=== PATIENT | female | born 1985 | race American Indian/Alaskan Native ===

== ENCOUNTER 2019-08-02 13:41 | Inpatient (IN) | payer BC, MEDICAID ==
--- NOTE | 2019-08-02 14:33 | History and Physical Report ---
History of Present Illness Date of examination: 08/02/19 Date of admission: 08/02/2019 Chief complaint: I'm here because my blood pressures where high at the office. Note from office phone call on 08/02/2019: [facility] was seen for her appointment today and her BP's were noted to be as high as 180's/90's. [facility] recommended delivery. Pt is 38.3 wks today. [facility] triage RNs and charge nurse Talisha were notified that patient will be on her way to hospital for direct admission. History of present illness: Patient with excessive weight gain during this , 94 pound weight gain. EDC Calculations LMP: 08/04/2019 EDC Confirmation: 08/14/2019 Gestational Age: 7 weeks Past History : 1 Term Births: 0 Premature Births: 0 Living Children: 0 Para: 0 Mult. Births: 0 Prev : 0 Prev. attempt? 0 Aborta: 0 Elect. Ab: 0 Spont. 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 Infection History Hx of STD: no HIV Risk Eval: no Hepatitis B Risk Eval: no Personal hx. of genital herpes: yes Partner hx. of genital herpes: no TB Risk: no Infection History Comments: Works at [employer] Genetic History Congenital Heart Defect: Jaqueline Disease: Thalassemia Mom: no Dad: no Neural Tube Defect Mom: no Dad: no Down's Syndrome Mom: no Dad: no Flaco-Sachs Mom: no Dad: no Sickle Cell Disease/Trait Mom: no Dad: no Hemophilia Mom: no Dad: no Muscular Dystrophy Mom: no Dad: no Cystic Fibrosis Mom: no Dad: no Kristopher Chorea Mom: no Dad: no Mental Retardation Mom: no Dad: no Fragile X Mom: no Dad: no Other Genetic/Chromosomal Disorder Mom: no Dad: no Child w/other defect Mom: no Dad: no Active Medications (reviewed today): PLUS 27-1 MG ORAL TABLET ( VIT-FE FUMARATE-FA) 1 po daily Current Allergies (reviewed today): No known allergies Past History Past Medical History: no pertinent history Past Surgical History: no surgical history Family/Genetic History: none Social history: no significant social history - Obstetrical History Expected Date of Delivery: 08/14/19 Actual Gestation: 38 Week(s) 3 Day(s) : 1 Para: 0 Hx # Term Pregnancies: 0 Number of Pregnancies: 0 Spontaneous Abortions: 0 Induced : 0 Number of Living Children: 0 Medications and Allergies Allergies Allergy/AdvReac Type Severity Reaction Status Date / Time No Known Allergies Allergy Unverified 08/02/19 14:53 Home Medications Medication Instructions Recorded Confirmed Last Taken Type No Known Home Medications [No 08/02/19 08/02/19 Unknown History Reported Home Medications] Review of Systems All systems: negative - Vital Signs Vital signs: Vital Signs Pulse Pulse Ox 105 H 97 08/02/19 14:27 08/02/19 14:27 Temp Pulse Resp BP Pulse Ox 100 H 145/81 97 08/02/19 14:31 08/02/19 14:31 08/02/19 14:27 - Physical Exam Breasts: Positive: deferred Cardiovascular: Regular rate, Normal S1, Normal S2 Lungs: Positive: Normal air movement Abdomen: Positive: normal appearance, soft, normal bowel sounds. Negative: distention, tenderness Genitourinary (Female): Positive: normal external genitalia, normal perenium Vulva: both: normal Vagina: Positive: normal moisture. Negative: discharge Cervix: Negative: lesion, discharge Uterus: Positive: normal size, normal contour Adnexa: both: normal Anus/Rectum: Positive: normal perianal skin, heme negative. Negative: rectal m ass, hemorrhoids Extremities: Positive: edema (+ 3 noted to hands and feet) Deep Tendon Reflex Grade: Normal +2 - Obstetrical FHR: auscultation normal, category 1 Uterine Contraction Monitor Mode: External Cervical Dilatation: 0 Cervical Effacement Percentage: 0 station: -3 Uterine Contraction Pattern: Irregular (Irregular ctxs noted.) Uterine Tone Measurement Phase: Resting Uterine Contraction Intensity: Mild Results Result Diagrams: 08/02/19 16:12 08/02/19 16:12 All other labs normal. GBS NEGATIVE HBsAg Screen Negative Negative *1 RPR Non Reactive Non Reactive *2 Rubella Antibodies, IgG 3.61 index Immune >0.99 *3 Non-immune <0.90 Equivocal 0.90 - 0.99 Immune >0.99 ABO Grouping O *4 Rh Factor Positive *5 Please note: Prior records for this patient's ABO / Rh type are not available for additional verification. Antibody Screen Negative Negative *6 WBC 7.6 x10E3/uL 3.4-10.8 *7 RBC 4.82 x10E6/uL 3.77-5.28 *8 Microcytes present. [place] cells present. Anisocytosis present. Hemoglobin [L] 11.0 g/dL 11.1-15.9 *9 Hematocrit 36.4 % 34.0-46.6 *10 MCV [L] 76 fL 79-97 *11 MCH [L] 22.8 pg 26.6-33.0 *12 MCHC [L] 30.2 g/dL 31.5-35.7 *13 RDW [H] 23.1 % 12.3-15.4 *14 Platelets 364 x10E3/uL 150-450 *15 Neutrophils 50 % Not Estab. *16 Lymphs 35 % Not Estab. *17 Monocytes 11 % Not Estab. *18 Eos 4 % Not Estab. *19 Basos 0 % Not Estab. *20 ! Immature Cells <No Reported Value> *21 Neutrophils (Absolute) 3.8 x10E3/uL 1.4-7.0 *22 Lymphs (Absolute) 2.6 x10E3/uL 0.7-3.1 *23 Monocytes(Absolute) 0.8 x10E3/uL 0.1-0.9 *24 Eos (Absolute) 0.3 x10E3/uL 0.0-0.4 *25 Baso (Absolute) 0.0 x10E3/uL 0.0-0.2 *26 ! Immature Granulocytes 0 % Not Estab. *27 ! Immature Grans (Abs) 0.0 x10E3/uL 0.0-0.1 *28 ! NRBC <No Reported Value> *29 Hematology Comments: Note: *30 Verified by microscopic examination. Tests: (2) HB Solu + Rflx Fra (320299) Hemoglobin (Hgb) Solubility Negative Negative *31 Tests: (3) Panel 542935 ([id number]) HIV Screen 4th Generation wRfx Non Reactive Non Reactive *32 Tests: (4) Gest. Diabetes 1-Hr Screen (640388) ! Gestational Diabetes Screen 103 mg/dL 65-139 *33 According to ADA, a glucose threshold of >139 mg/dL after 50-gram load identifies approximately 80% of women with gestational diabetes mellitus, while the sensitivity is further increased to approximately 90% by a threshold of >129 mg/dL. Tests: (5) HCV Ab w/Rflx to Verification (097707) ! HCV Ab <0.1 s/co ratio 0.0-0.9 *34 Tests: (6) Comment: (921404) ! Comment: SPRCS *35 Non reactive HCV antibody screen is consistent with no HCV infection, unless recent infection is suspected or other evidence exists to indicate HCV infection. Assessment and Plan A: Pt is 34 y.o. @ 38.2 wks with elevated BP's and +4 protein at [facility] office visit today. Recommended for IOL. Cervical exam 0/0/-3. P: Admit to L&D. Allow pt to eat dinner IOL to start after dinner. Cervidil to be placed. - Patient Problems (1) 38 weeks gestation of Onset Date: ~07/31/19 Current Visit: Yes Status: Acute Plan to address problem: Continue to monitor maternal and status. (2) Elevated blood pressure reading in office without diagnosis of hypertension Onset Date: ~08/02/19 Current Visit: Yes Status: Acute Plan to address problem: Will monitor BP's. If BP's or patient condition worsen, will start magnesium infusion and given antihypertensives as needed.
[2019-08-02] MEDS ORDERED: ePHEDrine SULFATE 50 MG/1 ML INJ IV PRN (14:36)
[2019-08-02] MEDS ORDERED: PROMETHAZINE 25 MG RECT SUPP PR PRN (14:36)
[2019-08-02] MEDS ORDERED: NALOXONE 0.4 MG/1 ML INJ IV PRN (14:36)
[2019-08-02] MEDS ORDERED: fentaNYL 100 MCG/2 ML INJ IV PRN (14:36)
[2019-08-02] MEDS ORDERED: MINERAL OIL 30 ML ORAL LIQD PO PRN (14:36)
[2019-08-02] MEDS ORDERED: TERBUTALINE 1 MG/1 ML INJ SUB-Q PRN (14:36)
[2019-08-02] MEDS ORDERED: LIDOCAINE (2%) 20 MG/1 ML VIAL 20 ML MDV INFILTRATI ONE (14:36)
[2019-08-02] MEDS ORDERED: TERBUTALINE 1 MG/1 ML INJ IVP PRN (14:36)
[2019-08-02] MEDS ORDERED: OXYTOCIN 20 UNIT/1000ML DRIP 20 UNITS/1,000 ML BAG IV SCH (15:00)
[2019-08-02 16:35] LABS: Hemoglobin 12.6 gm/dl (10.1-14.3); Mean Corpuscular HGB Conc 32 % (30-34); Mean Corpuscular Volume 84 fl (79-97); Platelet Count 191 K/mm3 (140-440); Red Blood Count 4.63 M/mm3 (3.65-5.03); Red Cell Distribution Width 16.7 % (13.2-15.2)
[2019-08-02 16:55] LABS: Alanine Aminotransferase 10 units/L (7-56); Uric Acid 5.7 mg/dL (3.5-7.6)
[2019-08-02] MEDS ORDERED: diphenhydrAMINE 25 MG CAP PO PRN (18:27)
[2019-08-02] MEDS ORDERED: DINOPROSTONE 10 MG VAG SUPP VG ONE (18:30)
[2019-08-03] MEDS ORDERED: MAGNESIUM SULFATE 40GM/1000ML 40 GM/1,000 ML BAG IV ONE (04:19)
[2019-08-03] MEDS ORDERED: MAGNESIUM SULFATE 4 GM/100 ML BAG IV ONE ×2 (04:20→04:28)
--- NOTE | 2019-08-03 04:22 | Event Note ---
Date: 08/03/19 (Call from RN regarding BPs 160's/90's.) Received a call from the RN regarding pt's BP's being persistently 160's/90's for the last hour. Consulted with Dr. Younger. Plan to start patient on magnesium infusion and given dose of hydralazine X 1. Will continue to monitor BP's. Pt continues to deny ANGELES. blurred vision, spots before her eye, and upper abdominal pain.
[2019-08-03] MEDS ORDERED: hydrALAZINE 20 MG/1 ML INJ IV ONE (04:29)
[2019-08-03] MEDS: LACTATED RINGERS 1,000 ML IV SCH ×2 (04:40→16:11)
[2019-08-03] MEDS: MAGNESIUM SULFATE 40GM/1000ML 40 GM/1,000 ML BAG IV SCH (05:05)
--- NOTE | 2019-08-03 07:35 | Progress Note ---
Assessment and Plan SVE cervix very posterior,fingertip,thick, OOP Pt c/o tightness in her arms and hands. She has good ROM but there is bilateral swelling. DTRs brisk LE Pitting edema to the knees. SCDs ordered MGSO4 continues @ 2gm/hr Labetalol 300mg BID as ordered per Dr Younger Did discuss with pt and SO that we will continue IOL but that there is a possibility of operative delivery Both voiced understanding Encouraged questions at any time. Dr Chairez notified Subjective - Subjective Date of service: 08/03/19 (pt c/o pain in her arms, feels tight) Principal diagnosis: [id number] PreE MGSO4 Patient reports: movement normal Objective - Vital Signs Vital Signs: Vital Signs - 12hr 08/02/19 08/02/19 08/02/19 19:36 19:41 19:46 Pulse Rate 97 H 93 H 91 H Blood Pressure 165/93 O2 Sat by Pulse 97 99 98 Oximetry 08/02/19 08/02/19 08/02/19 19:51 19:56 20:01 Pulse Rate 95 H 92 H 87 Blood Pressure O2 Sat by Pulse 98 96 96 Oximetry 08/02/19 08/02/19 08/02/19 20:16 20:21 20:26 Pulse Rate 102 H 91 H 90 Blood Pressure O2 Sat by Pulse 96 96 96 Oximetry 08/02/19 08/02/19 08/02/19 20:31 20:36 20:40 Pulse Rate 90 91 H 82 Blood Pressure 144/94 O2 Sat by Pulse 96 96 Oximetry 08/02/19 08/02/19 08/02/19 20:41 20:46 20:49 Pulse Rate 95 H 94 H 90 Blood Pressure O2 Sat by Pulse 95 97 94 Oximetry 08/02/19 08/02/19 08/02/19 20:51 20:56 21:01 Pulse Rate 92 H 95 H 95 H Blood Pressure O2 Sat by Pulse 96 97 96 Oximetry 08/02/19 08/02/19 08/02/19 21:06 21:09 21:10 Pulse Rate 98 H 95 H 88 Blood Pressure 143/90 O2 Sat by Pulse 96 94 Oximetry 08/02/19 08/02/19 08/02/19 21:11 21:16 21:17 Pulse Rate 93 H 102 H 97 H Blood Pressure O2 Sat by Pulse 96 97 94 Oximetry 05/27/20 05/27/20 05/27/20 21:21 21:22 21:26 Pulse Rate 90 87 90 Blood Pressure O2 Sat by Pulse 96 93 97 Oximetry 08/02/19 08/02/19 08/02/19 21:31 21:36 21:39 Pulse Rate 94 H 95 H 89 Blood Pressure O2 Sat by Pulse 96 96 94 Oximetry 08/02/19 08/02/19 08/02/19 21:41 21:44 21:46 Pulse Rate 92 H 91 H 92 H Blood Pressure 148/85 O2 Sat by Pulse 95 94 95 Oximetry 08/02/19 08/02/19 08/02/19 21:51 22:08 22:11 Pulse Rate 97 H 96 H 86 Blood Pressure 154/93 O2 Sat by Pulse 93 97 Oximetry 08/02/19 08/02/19 08/02/19 22:13 22:18 22:23 Pulse Rate 91 H 92 H 95 H Blood Pressure O2 Sat by Pulse 96 97 96 Oximetry 08/02/19 08/02/19 08/02/19 22:25 22:28 22:33 Pulse Rate 88 86 89 Blood Pressure O2 Sat by Pulse 94 95 94 Oximetry 08/02/19 08/02/19 08/02/19 22:38 22:39 22:40 Pulse Rate 83 82 93 H Blood Pressure 151/84 O2 Sat by Pulse 95 94 Oximetry 08/02/19 08/02/19 08/02/19 22:43 22:48 22:49 Pulse Rate 81 82 83 Blood Pressure O2 Sat by Pulse 93 95 94 Oximetry 08/02/19 08/02/19 08/02/19 22:53 22:56 22:58 Pulse Rate 94 H 92 H 91 H Blood Pressure O2 Sat by Pulse 93 94 93 Oximetry 08/02/19 08/02/19 08/02/19 23:03 23:04 23:08 Pulse Rate 89 88 89 Blood Pressure O2 Sat by Pulse 94 94 92 Oximetry 08/02/19 08/02/19 08/02/19 23:09 23:11 23:13 Pulse Rate 87 86 96 H Blood Pressure 160/94 O2 Sat by Pulse 93 98 Oximetry 08/02/19 08/02/19 08/02/19 23:21 23:25 23:26 Pulse Rate 97 H 89 87 Blood Pressure O2 Sat by Pulse 97 94 95 Oximetry 08/02/19 08/02/19 08/02/19 23:31 23:34 23:36 Pulse Rate 84 83 87 Blood Pressure O2 Sat by Pulse 96 94 95 Oximetry 08/02/19 08/02/19 08/02/19 23:39 23:40 23:41 Pulse Rate 88 86 89 Blood Pressure 125/69 O2 Sat by Pulse 94 95 Oximetry 08/02/19 08/02/19 08/02/19 23:44 23:46 23:50 Pulse Rate 83 87 84 Blood Pressure O2 Sat by Pulse 93 92 90 Oximetry 08/02/19 08/02/19 08/03/19 23:51 23:56 00:01 Pulse Rate 90 84 77 Blood Pressure O2 Sat by Pulse 96 96 95 Oximetry 08/03/19 08/03/19 08/03/19 00:02 00:06 00:08 Pulse Rate 82 81 77 Blood Pressure O2 Sat by Pulse 92 94 93 Oximetry 08/03/19 08/03/19 08/03/19 00:11 00:13 00:16 Pulse Rate 92 H 87 88 Blood Pressure 125/74 O2 Sat by Pulse 97 94 95 Oximetry 08/03/19 08/03/19 08/03/19 00:18 00:21 00:24 Pulse Rate 80 86 93 H Blood Pressure O2 Sat by Pulse 94 95 94 Oximetry 08/03/19 08/03/19 08/03/19 00:26 00:29 00:42 Pulse Rate 80 92 H 109 H Blood Pressure 131/71 O2 Sat by Pulse 94 93 97 Oximetry 08/03/19 08/03/19 08/03/19 00:47 00:52 00:57 Pulse Rate 91 H 93 H 95 H Blood Pressure O2 Sat by Pulse 96 97 98 Oximetry 08/03/19 08/03/19 08/03/19 01:02 01:07 01:10 Pulse Rate 96 H 90 88 Blood Pressure 145/89 O2 Sat by Pulse 96 96 Oximetry 08/03/19 08/03/19 08/03/19 01:23 01:28 01:30 Pulse Rate 112 H 94 H 86 Blood Pressure O2 Sat by Pulse 97 96 94 Oximetry 08/03/19 08/03/19 08/03/19 01:33 01:38 01:41 Pulse Rate 91 H 88 86 Blood Pressure 144/81 O2 Sat by Pulse 94 96 Oximetry 08/03/19 08/03/19 08/03/19 01:43 01:48 01:53 Pulse Rate 89 89 93 H Blood Pressure O2 Sat by Pulse 97 97 96 Oximetry 08/03/19 08/03/19 08/03/19 01:56 01:58 02:03 Pulse Rate 89 87 86 Blood Pressure O2 Sat by Pulse 94 96 95 Oximetry 08/03/19 08/03/19 08/03/19 02:04 02:08 02:12 Pulse Rate 88 84 81 Blood Pressure 161/97 O2 Sat by Pulse 94 95 Oximetry 08/03/19 08/03/19 08/03/19 02:13 02:18 02:21 Pulse Rate 86 91 H 89 Blood Pressure O2 Sat by Pulse 97 95 94 Oximetry 08/03/19 08/03/19 08/03/19 02:23 02:27 02:28 Pulse Rate 83 86 76 Blood Pressure O2 Sat by Pulse 95 90 93 Oximetry 08/03/19 08/03/19 08/03/19 02:42 03:12 03:21 Pulse Rate 86 83 73 Blood Pressure 167/92 159/95 162/96 O2 Sat by Pulse Oximetry 08/03/19 08/03/19 08/03/19 03:42 04:11 04:38 Pulse Rate 81 81 92 H Blood Pressure 165/96 189/92 O2 Sat by Pulse 98 Oximetry 08/03/19 08/03/19 08/03/19 04:39 04:41 04:43 Pulse Rate 92 H 88 95 H Blood Pressure 157/100 O2 Sat by Pulse 94 97 Oximetry 08/03/19 08/03/19 08/03/19 04:47 04:48 04:49 Pulse Rate 84 88 86 Blood Pressure 172/97 172/97 O2 Sat by Pulse 97 Oximetry 08/03/19 08/03/19 08/03/19 04:53 04:58 05:03 Pulse Rate 90 105 H 103 H Blood Pressure O2 Sat by Pulse 97 96 97 Oximetry 08/03/19 08/03/19 08/03/19 05:08 05:11 05:13 Pulse Rate 91 H 87 97 H Blood Pressure 169/93 O2 Sat by Pulse 97 97 Oximetry 05/28/20 05/28/20 05/28/20 05:18 05:24 05:29 Pulse Rate 98 H 95 H 96 H Blood Pressure O2 Sat by Pulse 98 97 95 Oximetry 08/03/19 08/03/19 08/03/19 05:34 05:35 05:39 Pulse Rate 95 H 94 H 108 H Blood Pressure O2 Sat by Pulse 95 94 94 Oximetry 08/03/19 08/03/19 08/03/19 05:41 05:42 05:44 Pulse Rate 97 H 93 H 94 H Blood Pressure 161/94 O2 Sat by Pulse 94 96 Oximetry 08/03/19 08/03/19 08/03/19 05:46 05:49 05:54 Pulse Rate 95 H 94 H 101 H Blood Pressure O2 Sat by Pulse 94 95 95 Oximetry 08/03/19 08/03/19 08/03/19 05:59 06:04 06:09 Pulse Rate 101 H 103 H 98 H Blood Pressure O2 Sat by Pulse 96 95 95 Oximetry 08/03/19 08/03/19 08/03/19 06:11 06:14 06:19 Pulse Rate 94 H 93 H 93 H Blood Pressure 170/94 O2 Sat by Pulse 95 96 Oximetry 08/03/19 08/03/19 08/03/19 06:20 06:24 06:29 Pulse Rate 94 H 117 H 111 H Blood Pressure O2 Sat by Pulse 94 97 97 Oximetry 08/03/19 08/03/19 08/03/19 06:34 06:38 06:39 Pulse Rate 104 H 96 H 100 H Blood Pressure 175/88 O2 Sat by Pulse 96 97 Oximetry 08/03/19 08/03/19 08/03/19 06:44 06:49 06:52 Pulse Rate 104 H 107 H 95 H Blood Pressure 148/78 O2 Sat by Pulse 97 97 Oximetry 08/03/19 08/03/19 08/03/19 06:54 06:59 07:04 Pulse Rate 100 H 100 H 96 H Blood Pressure O2 Sat by Pulse 96 97 95 Oximetry 08/03/19 08/03/19 08/03/19 07:07 07:09 07:12 Pulse Rate 94 H 99 H 99 H Blood Pressure 144/89 O2 Sat by Pulse 96 94 Oximetry 08/03/19 08/03/19 08/03/19 07:14 07:19 07:22 Pulse Rate 96 H 95 H 93 H Blood Pressure 146/88 O2 Sat by Pulse 94 95 94 Oximetry 08/03/19 08/03/19 07:24 07:29 Pulse Rate 94 H 103 H Blood Pressure O2 Sat by Pulse 95 98 Oximetry - Exam Breasts: deferred Cardiovascular: Regular rate Lungs: Clear to auscultation Abdomen: Present: normal appearance, soft. Absent: distention, tenderness Uterus: Present: normal FHR: auscultation normal, category 1 Uterine Contraction Monitor Mode: External Cervical Dilatation: 0.5 Cervical Effacement Percentage: 30 station: -3 Uterine Contraction Frequency (min): 3-5 Uterine Contraction Duration: 45 Uterine Contraction Pattern: Irregular Uterine Tone Measurement Phase: Resting Uterine Contraction Intensity: Mild Extremities: edema Deep Tendon Reflex Grade: Normal but brisk +3 - Labs Labs: Abnormal Labs 08/02/19 08/02/19 16:12 16:12 MCH 27 L RDW 16.7 H Lactate Dehydrogenase 285 H Laboratory Results - last 24 hr 08/02/19 08/02/19 08/02/19 15:56 16:12 16:12 WBC 10.5 RBC 4.63 Hgb 12.6 Hct 39.0 MCV 84 MCH 27 L MCHC 32 RDW 16.7 H Plt Count 191 Creatinine 0.7 Estimated GFR > 60 Uric Acid 5.7 AST 22 ALT 10 Lactate Dehydrogenase 285 H Syphilis IgG Antibody Blood Type O POSITIVE Antibody Screen Negative 08/02/19 16:12 WBC RBC Hgb Hct MCV MCH MCHC RDW Plt Count Creatinine Estimated GFR Uric Acid AST ALT Lactate Dehydrogenase Syphilis IgG Antibody Non-reactive Blood Type Antibody Screen
[2019-08-03] MEDS: OXYTOCIN DRIP 30 UNITS/500 ML BAG IV SCH ×4 (09:42→17:35)
[2019-08-03] MEDS: ACETAMINOPHEN W/CODEINE 300-30 MG TAB PO PRN ×2 (11:43→21:14)
--- NOTE | 2019-08-03 13:30 | Progress Note ---
Assessment and Plan Pt asking for epidural SVE 1,50,-4 Will give IV pain meds. Dr Chairez notified of pt status. Subjective - Subjective Date of service: 08/03/19 (low baseline 100; pt asking for epidural) Principal diagnosis: [id number] PreE MGSO4 Patient reports: movement normal, contractions Objective - Vital Signs Vital Signs: Vital Signs - 12hr 08/03/19 08/03/19 08/03/19 01:28 01:30 01:33 Temperature Pulse Rate 94 H 86 91 H Respiratory Rate Blood Pressure Blood Pressure [Right] O2 Sat by Pulse 96 94 94 Oximetry 08/03/19 08/03/19 08/03/19 01:38 01:41 01:43 Temperature Pulse Rate 88 86 89 Respiratory Rate Blood Pressure 144/81 Blood Pressure [Right] O2 Sat by Pulse 96 97 Oximetry 08/03/19 08/03/19 08/03/19 01:48 01:53 01:56 Temperature Pulse Rate 89 93 H 89 Respiratory Rate Blood Pressure Blood Pressure [Right] O2 Sat by Pulse 97 96 94 Oximetry 08/03/19 08/03/19 08/03/19 01:58 02:03 02:04 Temperature Pulse Rate 87 86 88 Respiratory Rate Blood Pressure Blood Pressure [Right] O2 Sat by Pulse 96 95 94 Oximetry 08/03/19 08/03/19 08/03/19 02:08 02:12 02:13 Temperature Pulse Rate 84 81 86 Respiratory Rate Blood Pressure 161/97 Blood Pressure [Right] O2 Sat by Pulse 95 97 Oximetry 08/03/19 08/03/19 08/03/19 02:18 02:21 02:23 Temperature Pulse Rate 91 H 89 83 Respiratory Rate Blood Pressure Blood Pressure [Right] O2 Sat by Pulse 95 94 95 Oximetry 08/03/19 08/03/19 08/03/19 02:27 02:28 02:42 Temperature Pulse Rate 86 76 86 Respiratory Rate Blood Pressure 167/92 Blood Pressure [Right] O2 Sat by Pulse 90 93 Oximetry 08/03/19 08/03/19 08/03/19 03:12 03:21 03:42 Temperature Pulse Rate 83 73 81 Respiratory Rate Blood Pressure 159/95 162/96 165/96 Blood Pressure [Right] O2 Sat by Pulse Oximetry 05/28/20 05/28/20 05/28/20 04:11 04:38 04:39 Temperature Pulse Rate 81 92 H 92 H Respiratory Rate Blood Pressure 189/92 Blood Pressure [Right] O2 Sat by Pulse 98 94 Oximetry 08/03/19 08/03/19 08/03/19 04:41 04:43 04:47 Temperature Pulse Rate 88 95 H 84 Respiratory Rate Blood Pressure 157/100 172/97 Blood Pressure [Right] O2 Sat by Pulse 97 Oximetry 08/03/19 08/03/19 08/03/19 04:48 04:49 04:53 Temperature Pulse Rate 88 86 90 Respiratory Rate Blood Pressure 172/97 Blood Pressure [Right] O2 Sat by Pulse 97 97 Oximetry 08/03/19 08/03/19 08/03/19 04:58 05:03 05:08 Temperature Pulse Rate 105 H 103 H 91 H Respiratory Rate Blood Pressure Blood Pressure [Right] O2 Sat by Pulse 96 97 97 Oximetry 08/03/19 08/03/19 08/03/19 05:11 05:13 05:18 Temperature Pulse Rate 87 97 H 98 H Respiratory Rate Blood Pressure 169/93 Blood Pressure [Right] O2 Sat by Pulse 97 98 Oximetry 08/03/19 08/03/19 08/03/19 05:24 05:29 05:34 Temperature Pulse Rate 95 H 96 H 95 H Respiratory Rate Blood Pressure Blood Pressure [Right] O2 Sat by Pulse 97 95 95 Oximetry 08/03/19 08/03/19 08/03/19 05:35 05:39 05:41 Temperature Pulse Rate 94 H 108 H 97 H Respiratory Rate Blood Pressure Blood Pressure [Right] O2 Sat by Pulse 94 94 94 Oximetry 08/03/19 08/03/19 08/03/19 05:42 05:44 05:46 Temperature Pulse Rate 93 H 94 H 95 H Respiratory Rate Blood Pressure 161/94 Blood Pressure [Right] O2 Sat by Pulse 96 94 Oximetry 08/03/19 08/03/19 08/03/19 05:49 05:54 05:59 Temperature Pulse Rate 94 H 101 H 101 H Respiratory Rate Blood Pressure Blood Pressure [Right] O2 Sat by Pulse 95 95 96 Oximetry 08/03/19 08/03/19 08/03/19 06:04 06:09 06:11 Temperature Pulse Rate 103 H 98 H 94 H Respiratory Rate Blood Pressure 170/94 Blood Pressure [Right] O2 Sat by Pulse 95 95 Oximetry 08/03/19 08/03/19 08/03/19 06:14 06:19 06:20 Temperature Pulse Rate 93 H 93 H 94 H Respiratory Rate Blood Pressure Blood Pressure [Right] O2 Sat by Pulse 95 96 94 Oximetry 08/03/19 08/03/19 08/03/19 06:24 06:29 06:34 Temperature Pulse Rate 117 H 111 H 104 H Respiratory Rate Blood Pressure Blood Pressure [Right] O2 Sat by Pulse 97 97 96 Oximetry 08/03/19 08/03/19 08/03/19 06:38 06:39 06:44 Temperature Pulse Rate 96 H 100 H 104 H Respiratory Rate Blood Pressure 175/88 Blood Pressure [Right] O2 Sat by Pulse 97 97 Oximetry 08/03/19 08/03/19 08/03/19 06:49 06:52 06:54 Temperature Pulse Rate 107 H 95 H 100 H Respiratory Rate Blood Pressure 148/78 Blood Pressure [Right] O2 Sat by Pulse 97 96 Oximetry 08/03/19 08/03/19 08/03/19 06:59 07:04 07:07 Temperature Pulse Rate 100 H 96 H 94 H Respiratory Rate Blood Pressure 144/89 Blood Pressure [Right] O2 Sat by Pulse 97 95 Oximetry 08/03/19 08/03/19 08/03/19 07:09 07:12 07:14 Temperature Pulse Rate 99 H 99 H 96 H Respiratory Rate Blood Pressure Blood Pressure [Right] O2 Sat by Pulse 96 94 94 Oximetry 08/03/19 08/03/19 08/03/19 07:19 07:22 07:24 Temperature Pulse Rate 95 H 93 H 94 H Respiratory Rate Blood Pressure 146/88 Blood Pressure [Right] O2 Sat by Pulse 95 94 95 Oximetry 08/03/19 08/03/19 08/03/19 07:29 07:34 07:38 Temperature Pulse Rate 103 H 97 H 88 Respiratory Rate Blood Pressure 144/84 Blood Pressure [Right] O2 Sat by Pulse 98 96 Oximetry 08/03/19 08/03/19 08/03/19 07:39 07:44 07:49 Temperature Pulse Rate 95 H 101 H 97 H Respiratory Rate Blood Pressure Blood Pressure [Right] O2 Sat by Pulse 95 97 95 Oximetry 08/03/19 08/03/19 08/03/19 07:50 07:52 07:54 Temperature Pulse Rate 94 H 95 H 97 H Respiratory Rate Blood Pressure 135/79 Blood Pressure [Right] O2 Sat by Pulse 94 96 Oximetry 08/03/19 08/03/19 08/03/19 08:37 08:53 09:07 Temperature Pulse Rate 93 H 88 90 Respiratory Rate Blood Pressure 119/72 120/73 117/67 Blood Pressure [Right] O2 Sat by Pulse Oximetry 08/03/19 08/03/19 08/03/19 09:22 09:37 09:50 Temperature 97.6 F Pulse Rate 85 90 90 Respiratory 16 Rate Blood Pressure 121/61 123/71 Blood Pressure 131/74 [Right] O2 Sat by Pulse Oximetry 08/03/19 08/03/19 08/03/19 09:51 10:17 10:22 Temperature Pulse Rate 88 89 93 H Respiratory Rate Blood Pressure 131/74 132/83 Blood Pressure [Right] O2 Sat by Pulse 95 96 Oximetry 08/03/19 08/03/19 08/03/19 10:27 10:32 10:37 Temperature Pulse Rate 89 86 86 Respiratory Rate Blood Pressure 133/79 Blood Pressure [Right] O2 Sat by Pulse 94 93 92 Oximetry 08/03/19 08/03/19 08/03/19 10:38 10:42 10:47 Temperature Pulse Rate 87 85 91 H Respiratory Rate Blood Pressure Blood Pressure [Right] O2 Sat by Pulse 93 94 96 Oximetry 08/03/19 08/03/19 08/03/19 10:52 10:56 10:57 Temperature Pulse Rate 91 H 82 91 H Respiratory Rate Blood Pressure 135/76 Blood Pressure [Right] O2 Sat by Pulse 97 93 96 Oximetry 08/03/19 08/03/19 08/03/19 11:02 11:07 11:08 Temperature Pulse Rate 83 87 84 Respiratory Rate Blood Pressure 132/83 Blood Pressure [Right] O2 Sat by Pulse 95 96 Oximetry 08/03/19 08/03/19 08/03/19 11:11 11:12 11:17 Temperature Pulse Rate 88 87 83 Respiratory Rate Blood Pressure Blood Pressure [Right] O2 Sat by Pulse 93 95 94 Oximetry 08/03/19 08/03/19 08/03/19 11:22 11:25 11:27 Temperature Pulse Rate 88 87 87 Respiratory Rate Blood Pressure 132/77 Blood Pressure [Right] O2 Sat by Pulse 96 94 96 Oximetry 08/03/19 08/03/19 08/03/19 11:32 11:34 11:37 Temperature Pulse Rate 88 81 80 Respiratory Rate Blood Pressure 136/76 Blood Pressure [Right] O2 Sat by Pulse 96 93 95 Oximetry 08/03/19 08/03/19 08/03/19 11:42 11:43 11:47 Temperature Pulse Rate 86 86 91 H Respiratory Rate Blood Pressure Blood Pressure [Right] O2 Sat by Pulse 95 94 96 Oximetry 08/03/19 08/03/19 08/03/19 11:48 11:52 11:57 Temperature Pulse Rate 93 H 86 83 Respiratory Rate Blood Pressure 142/86 Blood Pressure [Right] O2 Sat by Pulse 93 95 94 Oximetry 08/03/19 08/03/19 08/03/19 12:02 12:03 12:07 Temperature Pulse Rate 85 85 88 Respiratory Rate Blood Pressure 148/87 Blood Pressure [Right] O2 Sat by Pulse 96 94 97 Oximetry 08/03/19 08/03/19 08/03/19 12:09 12:12 12:17 Temperature Pulse Rate 84 88 83 Respiratory Rate Blood Pressure Blood Pressure [Right] O2 Sat by Pulse 94 97 95 Oximetry 08/03/19 08/03/19 08/03/19 12:21 12:22 12:27 Temperature Pulse Rate 83 83 81 Respiratory Rate Blood Pressure 147/82 Blood Pressure [Right] O2 Sat by Pulse 93 96 95 Oximetry 08/03/19 08/03/19 08/03/19 12:28 12:32 12:34 Temperature Pulse Rate 79 75 79 Respiratory Rate Blood Pressure Blood Pressure [Right] O2 Sat by Pulse 94 94 92 Oximetry 08/03/19 08/03/19 08/03/19 12:37 12:38 12:40 Temperature Pulse Rate 82 76 83 Respiratory Rate Blood Pressure 144/81 Blood Pressure [Right] O2 Sat by Pulse 94 94 Oximetry 08/03/19 08/03/19 08/03/19 12:42 12:47 12:52 Temperature Pulse Rate 83 94 H 81 Respiratory Rate Blood Pressure 135/82 Blood Pressure [Right] O2 Sat by Pulse 94 97 96 Oximetry 08/03/19 08/03/19 08/03/19 12:54 12:57 13:00 Temperature Pulse Rate 80 77 80 Respiratory Rate Blood Pressure Blood Pressure [Right] O2 Sat by Pulse 94 94 93 Oximetry 08/03/19 08/03/19 08/03/19 13:02 13:05 13:07 Temperature Pulse Rate 77 81 85 Respiratory Rate Blood Pressure 142/82 Blood Pressure [Right] O2 Sat by Pulse 94 94 94 Oximetry 08/03/19 08/03/19 08/03/19 13:11 13:12 13:17 Temperature Pulse Rate 81 82 89 Respiratory Rate Blood Pressure Blood Pressure [Right] O2 Sat by Pulse 94 96 96 Oximetry 08/03/19 08/03/19 13:18 13:22 Temperature Pulse Rate 56 L 92 H Respiratory Rate Blood Pressure 137/72 Blood Pressure [Right] O2 Sat by Pulse 90 97 Oximetry - Exam Breasts: deferred Cardiovascular: Regular rate Lungs: Normal air movement Abdomen: Present: normal appearance, soft. Absent: distention, tenderness Uterus: Present: normal FHR: auscultation normal Uterine Contraction Monitor Mode: External Cervical Dilatation: 1 (difficult to palpate head) Cervical Effacement Percentage: 50 station: -4 Uterine Contraction Pattern: Regular Uterine Tone Measurement Phase: Resting Uterine Contraction Intensity: Moderate Extremities: edema (appears to be worsening; +2 pitting edema.) Deep Tendon Reflex Grade: Normal but brisk +3 - Labs Labs: Abnormal Labs 08/02/19 08/02/19 08/03/19 16:12 16:12 06:48 MCH 27 L RDW 16.7 H Magnesium 3.70 H Lactate Dehydrogenase 285 H 08/03/19 12:11 MCH RDW Magnesium 4.80 H Lactate Dehydrogenase Laboratory Results - last 24 hr 08/02/19 08/02/19 08/02/19 15:56 16:12 16:12 WBC 10.5 RBC 4.63 Hgb 12.6 Hct 39.0 MCV 84 MCH 27 L MCHC 32 RDW 16.7 H Plt Count 191 Creatinine 0.7 Estimated GFR > 60 Uric Acid 5.7 Magnesium AST 22 ALT 10 Lactate Dehydrogenase 285 H Syphilis IgG Antibody Blood Type O POSITIVE Antibody Screen Negative 08/02/19 08/03/19 08/03/19 16:12 06:48 12:11 WBC RBC Hgb Hct MCV MCH MCHC RDW Plt Count Creatinine Estimated GFR Uric Acid Magnesium 3.70 H 4.80 H AST ALT Lactate Dehydrogenase Syphilis IgG Antibody Non-reactive Blood Type Antibody Screen
[2019-08-03 19:23] LABS: Hemoglobin 12.4 gm/dl (10.1-14.3); Mean Corpuscular HGB Conc 33 % (30-34); Mean Corpuscular Volume 85 fl (79-97); Platelet Count 174 K/mm3 (140-440); Red Blood Count 4.46 M/mm3 (3.65-5.03); Red Cell Distribution Width 17.1 % (13.2-15.2)
--- NOTE | 2019-08-03 19:26 | Event Note ---
Date: 08/03/19 (stop pitocin; Diet PM care; Cervidil) BPs 140/90 Dr Chairez here consult @ POC Will stop pitocin PM care then place Cervidil @ 2029 Pt agrees with POC All concerns addressed
[2019-08-03] MEDS ORDERED: DINOPROSTONE 10 MG VAG SUPP VG ONE (23:15)
[2019-08-04] MEDS: LACTATED RINGERS 1,000 ML IV SCH ×2 (04:52→22:01)
[2019-08-04] MEDS: ACETAMINOPHEN W/CODEINE 300-30 MG TAB PO PRN (07:07)
--- NOTE | 2019-08-04 08:18 | Progress Note ---
Assessment and Plan A: 34 y.o. @ term IOL d/t elevated BP's @ high risk appointment. On magnesium infusion with unchanged cervical exam. Cervidil placed @ 1030 pm. P: Cervidil to be removed @ 1030 am. Start Pitocin after Cervidil removed. - Patient Problems (1) 38 weeks gestation of Onset Date: ~07/31/19 Current Visit: Yes Status: Acute (2) Elevated blood pressure reading in office without diagnosis of hypertension Onset Date: ~08/02/19 Current Visit: Yes Status: Acute Subjective - Subjective Date of service: 08/04/19 (Pt states that she feels more swollen than yesterday.) Principal diagnosis: [id number] PreE MGSO4 Interval history: Patient with excessive weight gain during this , 94 pound weight gain. EDC Calculations LMP: 08/04/2019 EDC Confirmation: 08/14/2019 Gestational Age: 7 weeks Past History : 1 Term Births: 0 Premature Births: 0 Living Children: 0 Para: 0 Mult. Births: 0 Prev : 0 Prev. attempt? 0 Aborta: 0 Elect. Ab: 0 Spont. 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 Infection History Hx of STD: no HIV Risk Eval: no Hepatitis B Risk Eval: no Personal hx. of genital herpes: yes Partner hx. of genital herpes: no TB Risk: no Infection History Comments: Works at [employer] Genetic History Congenital Heart Defect: Jaqueline Disease: Thalassemia Mom: no Dad: no Neural Tube Defect Mom: no Dad: no Down's Syndrome Mom: no Dad: no Flaco-Sachs Mom: no Dad: no Sickle Cell Disease/Trait Mom: no Dad: no Hemophilia Mom: no Dad: no Muscular Dystrophy Mom: no Dad: no Cystic Fibrosis Mom: no Dad: no Kristopher Chorea Mom: no Dad: no Mental Retardation Mom: no Dad: no Fragile X Mom: no Dad: no Other Genetic/Chromosomal Disorder Mom: no Dad: no Child w/other defect Mom: no Dad: no Active Medications (reviewed today): PLUS 27-1 MG ORAL TABLET ( VIT-FE FUMARATE-FA) 1 po daily Current Allergies (reviewed today): No known allergies Patient reports: movement normal, contractions Objective - Vital Signs Vital Signs: Vital Signs - 12hr 08/03/19 08/03/19 08/03/19 20:19 20:22 20:37 Temperature Pulse Rate 105 H 97 H 103 H Respiratory Rate Blood Pressure 142/85 135/71 Blood Pressure [Right] O2 Sat by Pulse 95 Oximetry 08/03/19 08/03/19 08/03/19 20:44 20:49 20:52 Temperature 98.0 F Pulse Rate 104 H 97 H 103 H Respiratory 24 Rate Blood Pressure 143/75 Blood Pressure 143/75 [Right] O2 Sat by Pulse 97 96 Oximetry 08/03/19 08/03/19 08/03/19 20:54 20:59 21:04 Temperature Pulse Rate 99 H 99 H 98 H Respiratory Rate Blood Pressure Blood Pressure [Right] O2 Sat by Pulse 96 97 96 Oximetry 08/03/19 08/03/19 08/03/19 21:07 21:09 21:13 Temperature Pulse Rate 96 H 102 H 96 H Respiratory Rate Blood Pressure 148/84 148/84 Blood Pressure [Right] O2 Sat by Pulse 95 Oximetry 08/03/19 08/03/19 08/03/19 21:14 21:19 21:22 Temperature Pulse Rate 95 H 94 H 89 Respiratory Rate Blood Pressure 155/88 Blood Pressure [Right] O2 Sat by Pulse 97 98 Oximetry 08/03/19 08/03/19 08/03/19 21:24 21:29 21:34 Temperature Pulse Rate 90 85 85 Respiratory Rate Blood Pressure Blood Pressure [Right] O2 Sat by Pulse 98 98 96 Oximetry 08/03/19 08/03/19 08/03/19 21:35 21:37 21:39 Temperature Pulse Rate 86 85 85 Respiratory Rate Blood Pressure 150/85 Blood Pressure [Right] O2 Sat by Pulse 94 96 Oximetry 08/03/19 08/03/19 08/03/19 21:40 21:44 21:46 Temperature Pulse Rate 85 88 86 Respiratory Rate Blood Pressure Blood Pressure [Right] O2 Sat by Pulse 94 95 94 Oximetry 08/03/19 08/03/19 08/03/19 21:49 21:51 21:52 Temperature Pulse Rate 90 88 90 Respiratory Rate Blood Pressure 141/79 Blood Pressure [Right] O2 Sat by Pulse 94 94 Oximetry 08/03/19 08/03/19 08/03/19 21:54 21:59 22:04 Temperature Pulse Rate 88 84 85 Respiratory Rate Blood Pressure Blood Pressure [Right] O2 Sat by Pulse 94 93 93 Oximetry 08/03/19 08/03/19 08/03/19 22:07 22:09 22:11 Temperature Pulse Rate 86 87 84 Respiratory Rate Blood Pressure 141/77 Blood Pressure [Right] O2 Sat by Pulse 95 93 Oximetry 08/03/19 08/03/19 08/03/19 22:14 22:17 22:19 Temperature Pulse Rate 83 83 83 Respiratory Rate Blood Pressure Blood Pressure [Right] O2 Sat by Pulse 94 94 95 Oximetry 08/03/19 08/03/19 08/03/19 22:22 22:24 22:26 Temperature Pulse Rate 83 84 86 Respiratory Rate Blood Pressure 142/78 Blood Pressure [Right] O2 Sat by Pulse 97 94 Oximetry 08/03/19 08/03/19 08/03/19 22:42 22:47 22:52 Temperature Pulse Rate 90 88 87 Respiratory Rate Blood Pressure 116/61 Blood Pressure [Right] O2 Sat by Pulse 93 94 92 Oximetry 08/03/19 08/03/19 08/03/19 22:57 23:02 23:05 Temperature Pulse Rate 82 83 86 Respiratory Rate Blood Pressure Blood Pressure [Right] O2 Sat by Pulse 94 92 92 Oximetry 08/03/19 08/03/19 08/03/19 23:07 23:10 23:12 Temperature Pulse Rate 84 85 84 Respiratory Rate Blood Pressure Blood Pressure [Right] O2 Sat by Pulse 93 90 94 Oximetry 08/03/19 08/03/19 08/03/19 23:17 23:19 23:22 Temperature Pulse Rate 84 80 84 Respiratory Rate Blood Pressure 107/52 Blood Pressure [Right] O2 Sat by Pulse 97 92 95 Oximetry 08/03/19 08/03/19 08/03/19 23:24 23:27 23:30 Temperature Pulse Rate 84 85 83 Respiratory Rate Blood Pressure Blood Pressure [Right] O2 Sat by Pulse 90 91 90 Oximetry 0508/03/19 08/03/19 23:32 23:37 23:42 Temperature Pulse Rate 88 87 88 Respiratory Rate Blood Pressure Blood Pressure [Right] O2 Sat by Pulse 93 96 95 Oximetry 08/03/19 08/03/19 08/03/19 23:47 23:49 23:52 Temperature Pulse Rate 89 87 88 Respiratory Rate Blood Pressure Blood Pressure [Right] O2 Sat by Pulse 96 94 97 Oximetry 08/03/19 08/03/19 08/03/19 23:53 23:56 23:57 Temperature Pulse Rate 87 86 87 Respiratory Rate Blood Pressure 114/55 Blood Pressure [Right] O2 Sat by Pulse 94 94 Oximetry 08/04/19 08/04/19 08/04/19 00:02 00:05 00:07 Temperature Pulse Rate 96 H 85 82 Respiratory Rate Blood Pressure Blood Pressure [Right] O2 Sat by Pulse 96 94 93 Oximetry 08/04/19 08/04/19 08/04/19 00:10 00:12 00:17 Temperature Pulse Rate 85 85 84 Respiratory Rate Blood Pressure Blood Pressure [Right] O2 Sat by Pulse 94 96 96 Oximetry 08/04/19 08/04/19 08/04/19 00:22 00:27 00:32 Temperature Pulse Rate 83 88 97 H Respiratory Rate Blood Pressure 110/53 Blood Pressure [Right] O2 Sat by Pulse 96 96 98 Oximetry 08/04/19 08/04/19 08/04/19 00:37 00:38 00:42 Temperature Pulse Rate 84 82 81 Respiratory Rate Blood Pressure Blood Pressure [Right] O2 Sat by Pulse 95 94 96 Oximetry 08/04/19 08/04/19 08/04/19 00:43 00:47 00:49 Temperature Pulse Rate 83 83 84 Respiratory Rate Blood Pressure Blood Pressure [Right] O2 Sat by Pulse 92 94 91 Oximetry 08/04/19 08/04/19 08/04/19 00:52 00:53 00:54 Temperature Pulse Rate 82 81 81 Respiratory Rate Blood Pressure 119/75 Blood Pressure [Right] O2 Sat by Pulse 96 94 Oximetry 08/04/19 08/04/19 08/04/19 00:57 01:01 01:02 Temperature Pulse Rate 85 83 82 Respiratory Rate Blood Pressure Blood Pressure [Right] O2 Sat by Pulse 94 94 94 Oximetry 08/04/19 08/04/19 08/04/19 01:07 01:09 01:12 Temperature Pulse Rate 87 86 86 Respiratory Rate Blood Pressure Blood Pressure [Right] O2 Sat by Pulse 94 94 94 Oximetry 08/04/19 08/04/19 08/04/19 01:15 01:17 01:20 Temperature Pulse Rate 82 82 79 Respiratory Rate Blood Pressure Blood Pressure [Right] O2 Sat by Pulse 94 95 92 Oximetry 08/04/19 08/04/19 08/04/19 01:22 01:25 01:27 Temperature Pulse Rate 83 80 88 Respiratory Rate Blood Pressure 121/68 Blood Pressure [Right] O2 Sat by Pulse 91 90 91 Oximetry 08/04/19 08/04/19 08/04/19 01:31 01:32 01:37 Temperature Pulse Rate 83 82 85 Respiratory Rate Blood Pressure Blood Pressure [Right] O2 Sat by Pulse 94 95 94 Oximetry 08/04/19 08/04/19 08/04/19 01:42 01:43 01:47 Temperature Pulse Rate 93 H 90 82 Respiratory Rate Blood Pressure Blood Pressure [Right] O2 Sat by Pulse 95 93 96 Oximetry 08/04/19 08/04/19 08/04/19 01:48 01:52 01:54 Temperature Pulse Rate 86 86 85 Respiratory Rate Blood Pressure 121/67 Blood Pressure [Right] O2 Sat by Pulse 94 91 90 Oximetry 08/04/19 08/04/19 08/04/19 01:57 01:59 02:02 Temperature Pulse Rate 83 84 88 Respiratory Rate Blood Pressure Blood Pressure [Right] O2 Sat by Pulse 91 93 95 Oximetry 08/04/19 08/04/19 08/04/19 02:04 02:07 02:09 Temperature Pulse Rate 83 87 83 Respiratory Rate Blood Pressure Blood Pressure [Right] O2 Sat by Pulse 92 96 90 Oximetry 08/04/19 08/04/19 08/04/19 02:12 02:15 02:17 Temperature Pulse Rate 87 87 86 Respiratory Rate Blood Pressure Blood Pressure [Right] O2 Sat by Pulse 92 91 92 Oximetry 08/04/19 08/04/19 08/04/19 02:20 02:22 02:25 Temperature Pulse Rate 86 88 88 Respiratory Rate Blood Pressure 131/74 Blood Pressure [Right] O2 Sat by Pulse 91 93 89 Oximetry 08/04/19 08/04/19 08/04/19 02:27 02:31 02:32 Temperature Pulse Rate 88 81 89 Respiratory Rate Blood Pressure Blood Pressure [Right] O2 Sat by Pulse 95 91 95 Oximetry 08/04/19 08/04/19 08/04/19 02:36 02:37 02:41 Temperature Pulse Rate 86 85 87 Respiratory Rate Blood Pressure Blood Pressure [Right] O2 Sat by Pulse 94 95 92 Oximetry 08/04/19 08/04/19 08/04/19 02:42 02:46 02:47 Temperature Pulse Rate 86 91 H 89 Respiratory Rate Blood Pressure Blood Pressure [Right] O2 Sat by Pulse 94 92 96 Oximetry 08/04/19 08/04/19 08/04/19 02:52 02:54 02:57 Temperature Pulse Rate 87 86 86 Respiratory Rate Blood Pressure 115/62 Blood Pressure [Right] O2 Sat by Pulse 95 94 95 Oximetry 08/04/19 08/04/19 08/04/19 02:59 03:02 03:07 Temperature Pulse Rate 89 86 83 Respiratory Rate Blood Pressure Blood Pressure [Right] O2 Sat by Pulse 93 96 95 Oximetry 08/04/19 08/04/19 08/04/19 03:10 03:12 03:16 Temperature Pulse Rate 85 86 84 Respiratory Rate Blood Pressure Blood Pressure [Right] O2 Sat by Pulse 94 93 94 Oximetry 08/04/19 08/04/19 08/04/19 03:17 03:21 03:22 Temperature Pulse Rate 91 H 86 85 Respiratory Rate Blood Pressure 119/68 Blood Pressure [Right] O2 Sat by Pulse 95 94 96 Oximetry 08/04/19 08/04/19 08/04/19 03:27 03:30 03:32 Temperature Pulse Rate 88 83 87 Respiratory Rate Blood Pressure Blood Pressure [Right] O2 Sat by Pulse 95 94 94 Oximetry 08/04/19 08/04/19 08/04/19 03:37 03:39 03:42 Temperature Pulse Rate 95 H 85 89 Respiratory Rate Blood Pressure Blood Pressure [Right] O2 Sat by Pulse 98 94 95 Oximetry 08/04/19 08/04/19 08/04/19 03:45 03:47 03:52 Temperature Pulse Rate 91 H 81 88 Respiratory Rate Blood Pressure Blood Pressure [Right] O2 Sat by Pulse 94 94 94 Oximetry 08/04/19 08/04/19 08/04/19 03:55 03:57 04:02 Temperature Pulse Rate 86 84 83 Respiratory Rate Blood Pressure 135/71 Blood Pressure [Right] O2 Sat by Pulse 93 93 Oximetry 08/04/19 08/04/19 08/04/19 04:06 04:07 04:11 Temperature Pulse Rate 85 87 85 Respiratory Rate Blood Pressure Blood Pressure [Right] O2 Sat by Pulse 93 93 94 Oximetry 08/04/19 08/04/19 08/04/19 04:12 04:17 04:18 Temperature Pulse Rate 84 87 85 Respiratory Rate Blood Pressure Blood Pressure [Right] O2 Sat by Pulse 93 92 92 Oximetry 08/04/19 08/04/19 08/04/19 04:22 04:24 04:27 Temperature Pulse Rate 86 84 87 Respiratory Rate Blood Pressure 120/71 Blood Pressure [Right] O2 Sat by Pulse 95 94 90 Oximetry 08/04/19 08/04/19 08/04/19 04:31 04:32 04:37 Temperature Pulse Rate 85 86 84 Respiratory Rate Blood Pressure Blood Pressure [Right] O2 Sat by Pulse 93 94 90 Oximetry 08/04/19 08/04/19 08/04/19 04:42 04:47 04:50 Temperature Pulse Rate 87 92 H 87 Respiratory Rate Blood Pressure Blood Pressure [Right] O2 Sat by Pulse 93 97 93 Oximetry 08/04/19 08/04/19 08/04/19 04:54 04:55 04:56 Temperature 98.2 F Pulse Rate 92 H 88 86 Respiratory 24 Rate Blood Pressure 124/68 Blood Pressure 124/68 [Right] O2 Sat by Pulse 95 94 94 Oximetry 08/04/19 08/04/19 08/04/19 05:01 05:55 05:56 Temperature Pulse Rate 85 91 H 84 Respiratory Rate Blood Pressure 131/72 Blood Pressure [Right] O2 Sat by Pulse 92 93 Oximetry 08/04/19 08/04/19 08/04/19 05:57 06:03 06:14 Temperature Pulse Rate 85 83 83 Respiratory Rate Blood Pressure Blood Pressure [Right] O2 Sat by Pulse 92 94 94 Oximetry 08/04/19 08/04/19 08/04/19 06:20 06:27 06:32 Temperature Pulse Rate 84 82 79 Respiratory Rate Blood Pressure Blood Pressure [Right] O2 Sat by Pulse 94 92 92 Oximetry 08/04/19 08/04/19 08/04/19 06:40 06:45 06:51 Temperature Pulse Rate 82 84 88 Respiratory Rate Blood Pressure Blood Pressure [Right] O2 Sat by Pulse 93 94 94 Oximetry 08/04/19 08/04/19 08/04/19 06:55 06:57 06:58 Temperature Pulse Rate 80 87 94 H Respiratory Rate Blood Pressure 120/70 Blood Pressure [Right] O2 Sat by Pulse 95 94 Oximetry 08/04/19 08/04/19 08/04/19 07:03 07:09 07:14 Temperature Pulse Rate 88 88 86 Respiratory Rate Blood Pressure Blood Pressure [Right] O2 Sat by Pulse 94 94 94 Oximetry 08/04/19 08/04/19 08/04/19 07:20 07:26 07:34 Temperature Pulse Rate 84 85 82 Respiratory Rate Blood Pressure Blood Pressure [Right] O2 Sat by Pulse 94 94 92 Oximetry 08/04/19 08/04/19 08/04/19 07:40 07:46 07:52 Temperature 98.7 F Pulse Rate 83 79 82 Respiratory 20 Rate Blood Pressure Blood Pressure [Right] O2 Sat by Pulse 91 93 97 Oximetry 08/04/19 08/04/19 08/04/19 07:54 07:57 08:02 Temperature Pulse Rate 80 78 80 Respiratory Rate Blood Pressure Blood Pressure [Right] O2 Sat by Pulse 94 95 94 Oximetry - Exam Narrative Exam: Pt denies ANGELES, blurred vision, spots before her eyes, shortness of breath, and upper abdominal pain. Pt states that she feels more swollen than yesterday. Breasts: deferred Cardiovascular: Regular rate, Normal S1, Normal S2 Lungs: Clear to auscultation Abdomen: Present: normal appearance Vulva: both: normal Uterus: Present: normal FHR: auscultation normal Uterine Contraction Monitor Mode: External Cervical Dilatation: 1 Cervical Effacement Percentage: 40 station: -4 Uterine Contraction Pattern: Irregular Uterine Tone Measurement Phase: Resting Uterine Contraction Intensity: Mild Extremities: edema (Pt with +3 to +4 generalized edema ) Deep Tendon Reflex Grade: Normal +2 - Labs Labs: Abnormal Labs 08/02/19 08/02/19 08/03/19 16:12 16:12 06:48 MCH 27 L RDW 16.7 H Magnesium 3.70 H Lactate Dehydrogenase 285 H 08/03/19 08/03/19 08/03/19 12:11 18:59 18:59 MCH RDW 17.1 H Magnesium 4.80 H 6.10 H Lactate Dehydrogenase 08/04/19 08/04/19 00:12 05:36 MCH RDW Magnesium 5.80 H 5.90 H Lactate Dehydrogenase Laboratory Results - last 24 hr 08/03/19 08/03/19 08/03/19 12:11 18:59 18:59 WBC 9.4 RBC 4.46 Hgb 12.4 Hct 38.0 MCV 85 MCH 28 MCHC 33 RDW 17.1 H Plt Count 174 Magnesium 4.80 H 6.10 H 08/04/19 08/04/19 00:12 05:36 WBC RBC Hgb Hct MCV MCH MCHC RDW Plt Count Magnesium 5.80 H 5.90 H
[2019-08-04] MEDS ORDERED: BICITRA ORAL LIQD 30ML PO ONE (11:03)
[2019-08-04] MEDS ORDERED: METOCLOPRAMIDE 10 MG/2 ML INJ IV ONE (11:03)
[2019-08-04] MEDS ORDERED: FAMOTIDINE 20 MG/2 ML INJ IV ONE (11:03)
--- NOTE | 2019-08-04 11:03 | Event Note ---
Date: 08/04/19 (Cervidil removed.) Cervidil was removed and cervical exam remains unchanged. Spoke with patient regarding failed IOL and pt has opted not to continue with IOL. She has opted for a . Will update Dr. Younger.
[2019-08-04] MEDS ORDERED: ceFAZolin/Water 2 GM/20 ML 2 GM/20 ML SYRINGE IV NR (12:00)
[2019-08-04] MEDS ORDERED: LACTATED RINGERS 1,000 ML IV SCH (12:00)
--- NOTE | 2019-08-04 12:26 | Event Note ---
Date: 08/04/19 has been called. Currently awaiting time in OR as scheduled section is being completed.
--- NOTE | 2019-08-04 13:24 | Anesthesia Consultation ---
Anesthesia Consult and Med Hx Date of service: 08/04/19 - Airway Anesthetic Teeth Evaluation: Good ROM Head & Neck: Adequate Mental/Hyoid Distance: Adequate Mallampati Class: Class II Intubation Access Assessment: Probably Good - Pulmonary Exam CTA: Yes - Cardiac Exam Cardiac Exam: RRR - Pre-Operative Health Status ASA Pre-Surgery Classification: ASA3, Emergency Proposed Anesthetic Plan: Spinal - Pulmonary Hx Asthma: No COPD: No Hx Pneumonia: No - Cardiovascular System Hx Hypertension: Yes - Endocrine Hx End Stage Renal Disease: No - Other Systems Hx Alcohol Use: No Hx Obesity: Yes
--- NOTE | 2019-08-04 13:24 | Anesthesia Day of Surgery ---
Anesthesia Day of Surgery - Day of Surgery Patient Examined: Yes Patient H&P Reviewed: Yes Patient is NPO: Yes
[2019-08-04] MEDS ORDERED: DEXMEDETOMIDINE 200 MCG/2 ML VIAL IV ONE (13:29)
[2019-08-04] MEDS ORDERED: BUPIVACAINE/PF (0.5%) 5 MG/1 ML 30 ML VIAL INFILTRATI ONE (13:29)
[2019-08-04] MEDS ORDERED: PHENYLEPHRINE 10 MG/1 ML INJ SDV ONE (13:29)
[2019-08-04] MEDS ORDERED: KETOROLAC 30 MG/1 ML INJ ONE (13:29)
[2019-08-04] MEDS ORDERED: dexAMETHasone 20 MG/5 ML VIAL ONE (13:30)
[2019-08-04] MEDS ORDERED: ceFAZolin 1 GM VIAL ONE (14:05)
[2019-08-04] MEDS ORDERED: SODIUM CHLORIDE 0.9% 100 ML ONE (14:07)
[2019-08-04] MEDS ORDERED: WATER FOR IRRIG STERILE 1,500 ML BOTTLE IR ONE (14:08)
[2019-08-04] MEDS ORDERED: SODIUM CHLORIDE 0.9% IRR 1,500 ML BOTTLE IR ONE (14:08)
[2019-08-04] MEDS ORDERED: OXYTOCIN 10 UNIT/1 ML INJ ONE (14:25)
[2019-08-04] MEDS ORDERED: HETASTARCH 6% 500 ML IV ONE (14:46)
[2019-08-04] MEDS ORDERED: LANOLIN/ZINC/DIMETHICONE (LANSINOH) 7 GM TP PRN (15:13)
[2019-08-04] MEDS ORDERED: NALOXONE 0.4 MG/1 ML INJ IV PRN (15:13)
[2019-08-04] MEDS ORDERED: KETOROLAC 30 MG/1 ML INJ IV PRN (15:13)
[2019-08-04] MEDS ORDERED: WITCH HAZEL/ GLYCERIN PAD TP PRN (15:13)
[2019-08-04] MEDS ORDERED: MORPHINE 2 MG/1 ML INJ IV PRN (15:15)
--- NOTE | 2019-08-04 15:29 | Operative Report ---
Operative Report Operative Report: Date of procedure: 08/04/2019 Pre-operative diagnosis: 38 weeks gestation Preeclampsia Morbid obesity Failed induction of labor Post-operative diagnosis: Same Procedure name(s): Primary low transverse section via Pfannenstiel skin incision Vacuum assisted delivery Surgeon: Dr. Younger Vegetable Washing Machine Operator: ALFRED Anesthesia: Epidural EBL: 1 L Urine output: 100 mL of clear urine out at end of procedure Fluids: 1 L Findings: Liveborn male weight 7 pounds 6.7 ounces Apgars of 8 and 9 at 1 and 5 minutes Normal fallopian tubes and ovaries bilaterally Several fibroids noted largest being approximately 3 cm on the fundal left surface of the uterus Indications: Patient admitted for induction of labor due to gestational hypertension patient was noted to have severely elevated blood pressures with proteinuria and was given a diagnosis of preeclampsia upon admission. Patient underwent induction of labor for approximately 2 days without any cervical change. Patient desired to proceed with section after failed induction. All risks benefits and alternatives were discussed with the patient. Consents were signed and placed on the chart. Procedure: Patient was taking to the operating room. Patient was then prepped and draped in sterile fashion after anesthesia was found to be adequate. A low transverse skin incision was made with the scalpel and carried down to the underlying layer of fascia with the Bovie. The fascia was then incised in the midline and this incision was extended bilaterally with the Bovie. The superior aspect of the fascia was grasped with Rhoda clamps tented upward and dissected off of the anterior rectus muscles with the scalpel. In similar fashion the inferior aspect of the fascia was grasped with Rhoda clamps tented upward and dissected off of the anterior rectus muscles. The rectus muscles were then bluntly divided in the midline. The peritoneum was identified and entered into sharply. The Alexander retractor was placed. The bladder blade was placed. The bladder flap was created using the Metzenbaum scissors. The bladder blade was replaced. A lower transverse uterine incision was made with the scalpel and extended bilaterally with the bandage blunt dissection. Artificial rupture of membranes was performed yielding [clear amniotic fluid]. Kiwi vacuum was applied to the infant's head and with 1 pull 's head was delivered atraumatically care was taken not to place over anterior fontanelles. The anterior shoulder and rest of infant delivered without difficulty. The umbilical cord was clamped x2. The cord was cut. The was then placed in sterile bassinet. [The cord blood was collected.] The placenta was manually extracted in its entirety. The uterus was exteriorized and cleared of all clots and debris. The uterine incision was closed using 0 Vicryl in a running locking fashion. A second imbricating layer of the same suture was then created. The posterior cul-de-sac was copiously irrigated. The uterus was returned to the abdomen. The gutters were also irrigated. The anterior rectus muscles were reapproximated using 3-0 Vicryl. The anterior rectus fascia was reapproximated using 0 Vicryl in a running fashion. The subcuticular fat was reapproximated using 2-0 Vicryl in a running fashion. The skin was reapproximated with 4-0 Monocryl in a subcuticular stitch. The patient tolerated the procedure well. Sponge lap and needle counts were all correct x3. Patient was taken to the recovery room awake and in stable condition.
--- NOTE | 2019-08-04 15:40 | Post Anesthesia Evaluation ---
- Post Anesthesia Evaluation Patient Participated: Yes Airway Patent: Yes Stable Respiratory Function: Yes Nausea/Vomiting: No Temp > 96.8F: Yes Pain Manageable: Yes Adequeate Hydration: Yes Anesthesia Complications: No Block Receding Appropriately: Yes
[2019-08-04] MEDS ORDERED: D5W/LACTATED RINGERS 1,000 ML IV SCH (16:00)
[2019-08-04] MEDS ORDERED: OXYTOCIN 20 UNIT/1000ML DRIP 20 UNITS/1,000 ML BAG IV SCH (16:00)
[2019-08-04] MEDS: MAGNESIUM SULFATE 40GM/1000ML 40 GM/1,000 ML BAG IV SCH (19:06)
[2019-08-04] MEDS: ceFAZolin/NS 1 GM/50 ML 1 GM/50 ML BAG IV SCH (22:07)
[2019-08-05] MEDS ORDERED: oxyCODONE /ACETAMINOPHEN 5-325MG TAB PO PRN (06:00)
[2019-08-05] MEDS: ceFAZolin/NS 1 GM/50 ML 1 GM/50 ML BAG IV SCH (06:32)
[2019-08-05] MEDS: LACTATED RINGERS 1,000 ML IV SCH (08:57)
[2019-08-05 09:14] LABS: Hematocrit 30.3 % (30.3-42.9); Hemoglobin 9.9 gm/dl (10.1-14.3)
[2019-08-05] MEDS: FERROUS SULFATE 325 MG TAB PO SCH (09:49)
--- NOTE | 2019-08-05 10:23 | Progress Note ---
Assessment and Plan Patient sitting up in bed w/ baby in arms. denies ANGELES/visual change or epigastric pain, postop H&H 9.9/30.3, mag level 5.9. Mag decreased to 1gm/hr. Dressing D&I, will remove after shower this evening. lochia scant. - Patient Problems (1) Pre-eclampsia Current Visit: Yes Status: Acute Plan to address problem: mag sulfate x 24hrs (due to come down @ 1600 today) Mag levels q6 Strict I&O Continue labetalol 300mg PO (2) delivery delivered Current Visit: Yes Status: Acute Plan to address problem: advance diet and activity as tolerated Subjective - Subjective Date of service: 08/05/19 Principal diagnosis: Postop day #1 s/p primary c/s; pre-e Patient reports: appetite normal, pain well controlled, flatus, ambulating normally, no nauseated [place]: doing well, nursing well Objective - Vital Signs Latest vital signs: Vital Signs Temp Pulse Resp BP BP BP Pulse Ox 08/05/19 10:16 95 H 94 08/05/19 10:13 99 H 96 08/05/19 10:12 98 H 105/56 08/05/19 10:08 99 H 96 08/05/19 10:03 97 H 96 08/05/19 10:01 99 H 87 08/05/19 09:58 99 H 96 08/05/19 09:53 97 H 97 08/05/19 09:48 97 H 96 08/05/19 09:43 96 H 97 08/05/19 09:41 94 H 110/55 08/05/19 09:40 95 H 108/53 08/05/19 09:39 97 H 110/55 08/05/19 09:38 98 H 97 08/05/19 09:33 96 H 95 08/05/19 09:32 96 H 94 08/05/19 09:28 93 H 95 08/05/19 09:24 93 H 94 08/05/19 09:23 92 H 95 08/05/19 09:18 100 H 95 08/05/19 09:13 98 H 96 08/05/19 09:11 95 H 125/60 08/05/19 09:08 92 H 97 08/05/19 09:03 91 H 96 08/05/19 09:02 88 121/64 08/05/19 09:01 88 08/05/19 08:27 93 H 95 08/05/19 08:24 54 L 86 08/05/19 08:22 91 H 96 08/05/19 08:17 91 H 97 08/05/19 08:12 92 H 119/67 97 08/05/19 08:07 90 95 08/05/19 08:02 91 H 96 08/05/19 08:00 98.4 F 08/05/19 07:57 92 H 97 08/05/19 07:52 92 H 97 08/05/19 07:47 90 96 08/05/19 07:42 93 H 98 08/05/19 07:41 87 122/68 93 08/05/19 07:37 86 98 08/05/19 07:35 85 94 08/05/19 07:32 85 96 08/05/19 07:27 87 96 08/05/19 07:25 89 92 08/05/19 07:22 86 96 08/05/19 07:17 88 97 08/05/19 07:15 88 94 08/05/19 07:12 91 H 124/62 97 08/05/19 07:07 86 96 08/05/19 07:06 89 94 08/05/19 07:02 85 96 08/05/19 06:57 90 96 08/05/19 06:56 92 H 93 08/05/19 06:52 93 H 99 08/05/19 06:51 97 H 87 08/05/19 06:47 92 H 93 08/05/19 06:45 91 H 94 08/05/19 06:42 86 119/60 95 08/05/19 06:40 88 93 08/05/19 06:37 86 96 08/05/19 06:35 90 93 08/05/19 06:32 91 H 96 08/05/19 06:29 92 H 94 08/05/19 06:27 93 H 95 08/05/19 06:22 92 H 95 08/05/19 06:17 90 95 08/05/19 06:12 89 96/52 95 08/05/19 06:07 87 95 08/05/19 06:05 89 94 08/05/19 06:02 86 95 08/05/19 06:00 88 92 08/05/19 05:57 90 95 08/05/19 05:55 93 H 94 08/05/19 05:52 93 H 96 08/05/19 05:51 98.4 F 88 18 106/62 98 08/05/19 05:47 92 H 95 08/05/19 05:42 91 H 106/62 96 08/05/19 05:37 91 H 95 08/05/19 05:36 90 94 08/05/19 05:32 93 H 95 08/05/19 05:27 92 H 96 08/05/19 05:22 93 H 96 08/05/19 05:17 93 H 96 08/05/19 05:12 96 H 119/68 96 08/05/19 05:07 95 H 96 08/05/19 05:02 94 H 96 08/05/19 04:57 96 H 97 08/05/19 04:52 97 H 98 08/05/19 04:49 92 H 93 08/05/19 04:47 92 H 97 08/05/19 04:44 93 H 94 08/05/19 04:42 93 H 116/62 96 08/05/19 04:37 92 H 97 08/05/19 04:32 89 96 08/05/19 04:27 89 94 08/05/19 04:22 89 96 08/05/19 04:17 93 H 93 08/05/19 04:16 94 H 94 08/05/19 04:12 91 H 94 08/05/19 04:11 88 120/55 94 08/05/19 04:08 93 H 130/67 08/05/19 04:07 94 H 97 08/05/19 04:04 98.7 F 94 H 18 130/67 95 08/05/19 03:42 94 H 103/50 08/05/19 03:02 163 H 83 L 08/05/19 02:57 95 H 95 08/05/19 02:51 91 H 94 08/05/19 02:46 91 H 95 08/05/19 02:42 89 116/59 05 02:41 89 18 116/59 96 08/05/19 02:36 100 H 95 08/05/19 02:31 98 H 95 08/05/19 02:30 97 H 94 08/05/19 02:26 93 H 95 08/05/19 02:21 98 H 95 08/05/19 02:16 96 H 95 08/05/19 02:11 94 H 114/55 97 08/05/19 02:06 97 H 97 08/05/19 02:04 97.8 F 93 H 18 124/59 08/05/19 02:01 55 L 85 08/05/19 01:57 81 L 08/05/19 01:52 92 H 94 08/05/19 01:51 92 H 95 08/05/19 01:46 94 H 96 08/05/19 01:41 98 H 96 08/05/19 01:39 99 H 94 08/05/19 01:36 96 H 96 08/05/19 01:31 92 H 97 08/05/19 01:27 86 94 08/05/19 01:26 89 94 08/05/19 01:21 87 95 08/05/19 01:16 89 96 08/05/19 01:12 88 107/56 08/05/19 01:11 88 96 08/05/19 01:06 91 H 96 08/05/19 01:01 91 H 96 08/05/19 00:56 92 H 96 08/05/19 00:51 94 H 96 08/05/19 00:46 98 H 98 08/05/19 00:41 95 H 96 08/05/19 00:38 97 H 94 08/05/19 00:36 98 H 97 08/05/19 00:32 90 94 08/05/19 00:31 91 H 95 08/05/19 00:26 90 95 08/05/19 00:22 91 H 94 08/05/19 00:21 89 95 08/05/19 00:16 90 94 08/05/19 00:13 93 H 94 08/05/19 00:11 90 97 08/05/19 00:06 94 H 94 08/05/19 00:05 18 08/05/19 00:01 90 94 08/04/19 23:58 89 94 08/04/19 23:56 90 96 08/04/19 23:51 95 H 97 08/04/19 23:47 71 94 08/04/19 23:46 94 H 96 08/04/19 23:41 88 96 08/04/19 23:38 86 94 08/04/19 23:36 88 95 05 23:33 86 94 05 23:31 90 97 05 23:26 93 H 96 08/04/19 23:21 94 H 96 05 23:16 93 H 98 08/04/19 23:11 87 96 08/04/19 23:06 85 95 05 23:02 80 94 08/04/19 23:01 82 95 05 22:56 91 H 96 05 22:51 90 96 05 22:46 90 97 08/04/19 22:41 90 97 08/04/19 22:36 91 H 98 08/04/19 22:31 92 H 98 08/04/19 22:26 94 H 97 08/04/19 22:21 93 H 97 08/04/19 22:16 97 H 98 08/04/19 22:12 96 H 18 126/72 98 05 22:11 97 H 98 08/04/19 22:06 95 H 97 08/04/19 22:05 95 H 126/72 08/04/19 22:01 89 97 08/04/19 21:56 92 H 98 08/04/19 21:51 90 97 08/04/19 21:46 93 H 97 08/04/19 21:41 90 98 05 21:36 85 97 08/04/19 21:31 90 100 05 21:26 86 97 08/04/19 21:21 90 98 05 21:16 91 H 97 08/04/19 21:11 85 98 05 21:06 89 98 05 21:01 87 97 05 20:56 84 96 0520 20:51 85 97 05 20:46 84 18 126/72 97 0520 20:42 89 05 20:41 82 L 05 19:15 80 126/72 05 19:12 97.6 F 79 18 126/72 05 19:03 79 99 05 18:58 93 H 97 08/04/19 18:53 81 98 05 18:48 85 98 05/29/20 18:43 87 98 08/04/19 18:38 78 97 08/04/19 18:33 78 100 08/04/19 18:28 78 100 08/04/19 18:23 78 97 08/04/19 18:18 77 100 08/04/19 18:14 74 140/82 08/04/19 18:13 79 98 08/04/19 17:20 80 96 08/04/19 17:15 75 97 08/04/19 17:10 77 97 08/04/19 17:05 75 96 08/04/19 17:00 79 97 08/04/19 16:56 97.6 F 73 127/72 127/72 08/04/19 16:55 75 97 08/04/19 16:20 97.8 F 75 24 104/60 97 08/04/19 16:05 82 19 97 08/04/19 15:50 84 21 102/55 96 08/04/19 15:30 73 22 107/42 98 08/04/19 15:25 97.5 F L 80 27 H 118/67 98 08/04/19 15:20 73 22 111/63 96 08/04/19 15:15 73 20 111/58 98 08/04/19 15:10 108/62 97 08/04/19 13:00 82 95 08/04/19 12:57 79 94 08/04/19 12:55 78 139/81 08/04/19 12:41 85 94 08/04/19 12:32 80 93 08/04/19 12:27 80 90 08/04/19 12:22 82 93 08/04/19 12:16 83 93 08/04/19 12:11 77 94 08/04/19 12:05 81 94 08/04/19 12:00 83 95 08/04/19 11:59 78 94 08/04/19 11:52 98.8 F 81 95 08/04/19 11:49 80 94 08/04/19 11:45 79 137/78 08/04/19 11:41 82 94 08/04/19 11:36 79 94 08/04/19 11:12 87 129/74 08/04/19 11:00 92 H 98 08/04/19 10:55 85 129/74 08/04/19 10:53 80 93 05/29/20 10:47 82 92 08/04/19 10:42 85 93 08/04/19 10:36 77 92 08/04/19 10:31 81 90 08/04/19 10:25 84 92 08/04/19 10:20 83 93 Intake and Output 08/04/19 08/05/19 08/05/19 23:59 07:59 15:59 Intake Total 2049 820 Output Total 1205 1700 450 Balance 845 -1700 370 Intake: IV 2049 820 ANCEF/NS 1 GM/50 ML 1 gm 50 In 50 ml @ 100 mls/hr IV Q8H RUTH Rx#:[id number] Lactated Ringers 1,000 ml 1000 820 @ 125 mls/hr IV DIRECT RUTH Rx#:[id number] Output: Urine 1205 1700 450 Indwelling Catheter 765 1700 450 Uretheral (Muñiz) 315 Other: Total, Output Amount 200 800 250 Estimated Blood Loss 1,000 - Exam Breasts: Present: normal, Cardiovascular: Present: Regular rate Lungs: Present: Clear to auscultation, Normal air movement Abdomen: Present: normal appearance, soft Vulva: both: normal Uterus: Present: normal, firm, fundal height at umbilicus Extremities: Present: normal Deep Tendon Reflex Grade: Normal but brisk +3 Incision: Present: normal, dry, dressed - Labs Labs: Abnormal lab results 08/04/19 08/04/19 08/05/19 Range/Units 11:30 18:26 00:11 Hgb (10.1-14.3) gm/dl Magnesium 6.10 H 5.40 H 5.60 H (1.7-2.3) mg/dL 08/05/19 08/05/19 Range/Units 08:38 08:38 Hgb 9.9 L (10.1-14.3) gm/dl Magnesium 5.90 H (1.7-2.3) mg/dL
[2019-08-05] MEDS ORDERED: DIPHtheria,PERTUSSIS(ACELL),TETANUS VACCINE/PF 0.5 ML VIAL IM ONE (12:00)
[2019-08-06] MEDS: IBUPROFEN 800 MG TAB PO PRN ×2 (05:15→12:03)
--- NOTE | 2019-08-06 09:35 | Discharge Summary ---
Providers - Providers Date of Admission: 08/02/19 13:42 Date of discharge: 08/06/19 (pt desires d/c home) Attending physician: KIRAN BAUTISTA Primary care physician: KIRAN BAUTISTA Hospitalization Reason for admission: Induction of labor d/t pre-e Condition: Good Pertinent studies: post op H&H 9.9/30.3, asymptomatic anemia from acute blood loss Procedures: primary c/s Hospital course: c/s and postop course complicated by pre-e Disposition: DC-01 TO HOME OR SELFCARE - Discharge Diagnoses (1) Pre-eclampsia Status: Acute (2) delivery delivered Status: Acute Core Measure Documentation - Palliative Care Palliative Care/ Comfort Measures: Not Applicable - Core Measures Any of the following diagnoses?: none Exam - Constitutional Vitals: Temp Pulse Resp BP Pulse Ox 98.0 F 91 H 18 142/86 94 08/06/19 07:48 08/06/19 07:48 08/06/19 07:48 08/06/19 07:48 08/06/19 07:48 General appearance: Present: no acute distress, well-nourished - EENT Eyes: Present: PERRL ENT: hearing intact, clear oral mucosa - Neck Neck: Present: supple, normal ROM - Respiratory Respiratory effort: normal Respiratory: bilateral: CTA - Cardiovascular Rhythm: regular Heart Sounds: Absent: rub, click - Extremities Extremities: no ischemia, Full ROM Extremity abnormal: edema - Abdominal General gastrointestinal: Present: soft, non-tender, non-distended, normal bowel sounds Female genitourinary: Present: normal - Integumentary Integumentary: Present: clear, warm, dry - Musculoskeletal Musculoskeletal: gait normal, strength equal bilaterally - Psychiatric Psychiatric: appropriate mood/affect, intact judgment & insight - Neurologic Neurologic: CNII-XII intact, moves all extremities - Additional findings Additional findings: lochia scant, fundus firm, breast feeding Plan Activity: advance as tolerated Diet: regular Wound: open to air, keep clean and dry Follow up with: KIRAN BAUTISTA MD [Primary Care Provider] - 7 Days (Congratulations! Please call [phone] to schedule your son's circumcision and your incision check in 1 week. Bring EMLA cream to your son's visit and await further teaching. Call for any questions or concerns. ) Prescriptions: Docusate Sodium [Colace] 100 mg PO BID PRN #60 capsule PRN Reason: Constipation Lidocain2.5%/Prilocai2.5% [Emla] 2 gm TP ONCE #1 tube Ferrous Sulfate [Feosol 325 MG tab] 325 mg PO QDAY #60 tablet Labetalol HCl [Labetalol 300mg TAB] 300 mg PO BID #60 tablet Ibuprofen [Motrin 800 MG tab] 800 mg PO Q8HR PRN #30 tablet PRN Reason: Pain, Moderate (4-6) oxyCODONE /ACETAMINOPHEN [Percocet 5/325] 1 tab PO Q4HR #30 tab
[2019-08-06] MEDS: FERROUS SULFATE 325 MG TAB PO SCH (09:42)
[2019-08-06 14:10] VITALS: BP 140/87
== END 2019-08-06 14:15 | disposition home or self-care (01) | DRG 787 ==
LOC: TRG 13:41 → LD 13:42 → OB 08-05 19:00
PROVIDERS: ADMIT Obstetrics & Gynecology; ATTEND Obstetrics & Gynecology
PROC: 10D00Z1 Extraction of Products of Conception, Low, Open Approach (ICD-10-PCS; principal; 2019-08-04)
PROC: 3E0234Z Introduction of Serum, Toxoid and Vaccine into Muscle, Percutaneous Approach (ICD-10-PCS; 2019-08-05)
DX: O14.94 Unspecified pre-eclampsia, complicating childbirth (principal); D62 Acute posthemorrhagic anemia; O13.4 Gestational [pregnancy-induced] hypertension without significant proteinuria, complicating childbirth; O99.214 Obesity complicating childbirth; E66.01 Morbid (severe) obesity due to excess calories; O90.81 Anemia of the puerperium; O61.9 Failed induction of labor, unspecified; Z3A.38 38 weeks gestation of pregnancy; Z23 Encounter for immunization; Z37.0 Single live birth
CPT/HCPCS: 36415; 82565; 83615; 83735; 84450; 84460; 84550; 85014; 85018; 85027; 86592; 86850; 86900; 86901; 88307; 90715; G0378; J0360; J0690; J1100; J1885; J2270; J2370; J2590; J2765; J3010; J3475; J3490; J7120

== ENCOUNTER 2019-08-16 16:29 | Inpatient (IN) | payer BC, MEDICAID ==
[2019-08-16] MEDS ORDERED: MAGNESIUM SULFATE 4 GM/100 ML BAG IV ONE (16:31)
--- NOTE | 2019-08-16 16:57 | History and Physical Report ---
History of Present Illness Date of examination: 08/16/19 Chief complaint: ANGELES and elevated b/p, sent from office for direct admit. History of present illness: Visit Type: Acute Visit CC: BP. History of Present Illness: pt presents c/o post elevated BP, slight headaches............ ............................................................Jaki Gutierrez August 16, 2019 4:02 PM Postop day #12 s/p c/s with severe pre-e. pt seen in office as f/u from office yesterday. she c/o ANGELES and elevated b/p's at home today 141/98 and 155/111. b/p checked upon arrival to office 150/90. She was switched from labetalol PO to procardia PO d/t feeling dizzy on labetalol. AST/ALT elevated 43/37 yesterday. Plan developed with Dr. Chairez for admission to Labor and delivery for mag sulfate and b/p control. Patient agrees with plan ...................................................................Maria Del Rosario Chuck GUILLEN August 16, 2019 4:56 PM Vital Signs: Patient Profile: 34 Years Old Female Height: 65 inches Weight: 316 pounds BMI: 52.58 Temp: 97.9 degrees F BP sittin / 90 (left arm) Pt. in pain? no CPAS History Operations: Negative Past Surgical History Abnormal PAP: negative Infection History HIV Risk Eval: no TB exposure: no Personal hx. of genital herpes: yes Partner hx. of genital herpes: no Rash/viral illness since LMP: no Hx of STD: no Other: Works at [employer] Active Medications: PROCARDIA XL 30 MG ORAL TABLET EXTENDED RELEASE 24 HOUR (NIFEDIPINE) one by mouth twice a day MOTRIN IB TABLET (IBUPROFEN TABS) FERROUS SULFATE TABLET (FERROUS SULFATE TABS) PLUS 27-1 MG ORAL TABLET ( VIT-FE FUMARATE-FA) 1 po daily Current Allergies: No known allergies Past History Past Medical History: no pertinent history Past Surgical History: section Family/Genetic History: none Social history: no significant social history - Obstetrical History : 1 Para: 1 Number of Living Children: 1 Medications and Allergies Allergies Allergy/AdvReac Type Severity Reaction Status Date / Time No Known Allergies Allergy Unverified 08/02/19 14:53 Home Medications Medication Instructions Recorded Confirmed Last Taken Type Docusate Sodium [Colace] 100 mg PO BID PRN #60 capsule 08/04/19 Unknown Rx Ferrous Sulfate [Feosol 325 MG tab] 325 mg PO QDAY #60 tablet 08/04/19 Unknown Rx Ibuprofen [Motrin 800 MG tab] 800 mg PO Q8HR PRN #30 tablet 08/04/19 Unknown Rx Lidocain2.5%/Prilocai2.5% [Emla] 2 gm TP ONCE #1 tube 08/04/19 Unknown Rx oxyCODONE /ACETAMINOPHEN [Percocet 1 tab PO Q4HR #30 tab 08/04/19 Unknown Rx 5/325] Labetalol HCl [Labetalol 300mg TAB] 300 mg PO BID #60 tablet 08/06/19 Unknown Rx Active Meds: Active Medications Acetaminophen (Tylenol) 1,000 mg PO Q6H PRN PRN Reason: Pain, Mild (1-3) Lactated Ringer's (Lactated Ringers) 1,000 mls @ 125 mls/hr IV DIRECT RUTH Magnesium Sulfate (Magnesium Sulfate 4gm/100ml) 4 gm in 100 mls @ 300 mls/hr IV ONCE ONE Stop: 08/16/19 16:50 Magnesium Sulfate (Magnesium Sulfate 40gm/1000ml) 40 gm in 1,000 mls @ 50 mls/hr IV DIRECT RUTH Nifedipine (Procardia Xl) 30 mg PO Q12HR RUTH Review of Systems All systems: negative Eyes: normal appearance, no blurred vision, no tunnel vision, no blind spots Cardiovascular: high blood pressure, no chest pain, no palpitations, no edema, no syncope, no lightheadedness, no shortness of breath Respiratory: no cough, no congestion, no wheezing Breasts: normal, Musculoskeletal: no neck pain Neurological: headaches, no seizures, no changes in smell/taste, no double vision, no loss of vision - Physical Exam Breasts: Positive: normal, Cardiovascular: Regular rate Lungs: Positive: Clear to auscultation, Normal air movement Abdomen: Positive: normal appearance, soft Deep Tendon Reflex Grade: Normal +2 Results All other labs normal. labs from 08/15/19 Patient: RACHEL VALENTIN ID: [id number] Note: All result statuses are Final unless otherwise noted. Patient Note: PATIENT NOT FASTING Tests: (1) CBC With Differential/Platelet (308455) WBC 7.3 x10E3/uL 3.4-10.8 *1 RBC 4.10 x10E6/uL 3.77-5.28 *2 Hemoglobin 11.2 g/dL 11.1-15.9 *3 Hematocrit 36.5 % 34.0-46.6 *4 MCV 89 fL 79-97 *5 MCH 27.3 pg 26.6-33.0 *6 MCHC [L] 30.7 g/dL 31.5-35.7 *7 RDW [H] 18.1 % 11.7-15.4 *8 Platelets 375 x10E3/uL 150-450 *9 Neutrophils 53 % Not Estab. *10 Lymphs 34 % Not Estab. *11 Monocytes 10 % Not Estab. *12 Eos 3 % Not Estab. *13 Basos 0 % Not Estab. *14 ! Immature Cells <No Reported Value> *15 Neutrophils (Absolute) 3.9 x10E3/uL 1.4-7.0 *16 Lymphs (Absolute) 2.5 x10E3/uL 0.7-3.1 *17 Monocytes(Absolute) 0.8 x10E3/uL 0.1-0.9 *18 Eos (Absolute) 0.2 x10E3/uL 0.0-0.4 *19 Baso (Absolute) 0.0 x10E3/uL 0.0-0.2 *20 ! Immature Granulocytes 0 % Not Estab. *21 ! Immature Grans (Abs) 0.0 x10E3/uL 0.0-0.1 *22 ! NRBC <No Reported Value> *23 Hematology Comments: <No Reported Value> *24 Tests: (2) Comp. Metabolic Panel (14) ([id number]) Glucose 89 mg/dL 65-99 *25 BUN 8 mg/dL 6-20 *26 Creatinine 0.86 mg/dL 0.57-1.00 *27 ! eGFR If NonAfricn Am 90 mL/min/1.73 >59 *28 ! eGFR If Africn Am 103 mL/min/1.73 >59 *29 BUN/Creatinine Ratio 9 9-23 *30 Sodium 141 mmol/L 134-144 *31 Potassium 4.3 mmol/L 3.5-5.2 *32 Chloride 106 mmol/L 96-106 *33 Carbon Dioxide, Total 21 mmol/L 20-29 *34 Calcium 9.0 mg/dL 8.7-10.2 *35 Protein, Total 6.6 g/dL 6.0-8.5 *36 Albumin 4.1 g/dL 3.8-4.8 *37 Globulin, Total 2.5 g/dL 1.5-4.5 *38 A/G Ratio 1.6 1.2-2.2 *39 Bilirubin, Total 0.3 mg/dL 0.0-1.2 *40 Alkaline Phosphatase 102 IU/L 39-117 *41 AST (SGOT) [H] 43 IU/L 0-40 *42 ALT (SGPT) [H] 37 IU/L 0-32 *43 Performed At: , [facility] [address] [id number] Eladio Webb MD Phone: [phone] Assessment and Plan 34y/o postop day #12 s/p primary c/s, readmit for pre-e (AST/ALT elevated and b/p's not controlled on oral antihypertensives) - Patient Problems (1) Preeclampsia in period Status: Acute Plan to address problem: Mag sulfate x 24hrs w/ q6hr mag levels procardia XL 30mg BID close monitoring of VS and I&O pre-e labs (2) Abnormal LFTs (liver function tests) Status: Acute Plan to address problem: recheck on admission (3) Mother currently breast-feeding Status: Acute Plan to address problem: pump q3-4 hrs
[2019-08-16] MEDS ORDERED: MAGNESIUM SULFATE 40GM/1000ML 40 GM/1,000 ML BAG IV SCH (17:00)
[2019-08-16 18:07] LABS: Hematocrit 38.6 % (30.3-42.9); Hemoglobin 12.2 gm/dl (10.1-14.3); Mean Corpuscular HGB Conc 32 % (30-34); Mean Corpuscular Volume 88 fl (79-97); Platelet Count 381 K/mm3 (140-440); Red Blood Count 4.38 M/mm3 (3.65-5.03); Red Cell Distribution Width 18.7 % (13.2-15.2)
[2019-08-16] MEDS: LACTATED RINGERS 1,000 ML IV SCH (18:13)
[2019-08-16 18:29] LABS: Alanine Aminotransferase 39 units/L (7-56); Uric Acid 5.3 mg/dL (3.5-7.6)
[2019-08-16] MEDS: ACETAMINOPHEN 500 MG TAB PO PRN (18:58)
[2019-08-17] MEDS: NIFEdipine XL 30 MG TAB PO SCH ×3 (01:40→21:16)
[2019-08-17] MEDS: ACETAMINOPHEN 500 MG TAB PO PRN ×2 (06:56→13:14)
[2019-08-17] MEDS: LACTATED RINGERS 1,000 ML IV SCH (07:13)
--- NOTE | 2019-08-17 07:26 | Progress Note ---
Assessment and Plan - Patient Problems (1) Preeclampsia in period Onset Date: ~08/16/19 Current Visit: No Status: Acute Plan to address problem: Ms. Elen Barrera denies BV current headache, epigastric pain. She denies bleeding or cramping. She desires to eat, Mag Sulfate continues at 2 grams / hr. Cardiac/carb diet ordered. Plan to D/c mag infusion at 1700 and transfer to . Plan to D/c home tomorrow am Subjective - Subjective Date of service: 08/17/19 (pt c/o headache, tylenol improved) Principal diagnosis: S/P Section day 13 Readmit PP PreE Patient reports: voiding normally (clear yellow urine to BSB) Objective - Vital Signs Latest vital signs: Vital Signs Temp Pulse Resp BP BP Pulse Ox 08/17/19 07:22 91 H 79 L 08/17/19 07:18 85 89 08/17/19 07:17 82 97 08/17/19 07:12 80 98 08/17/19 07:07 79 97 08/17/19 07:02 85 99 08/17/19 06:57 88 99 08/17/19 06:56 20 08/17/19 06:55 98.7 F 20 98 08/17/19 06:52 81 96 08/17/19 06:47 78 96 08/17/19 06:42 79 99 08/17/19 06:37 79 97 08/17/19 06:33 78 135/66 08/17/19 06:32 75 96 08/17/19 06:27 84 97 08/17/19 06:22 77 96 08/17/19 06:17 78 99 08/17/19 06:12 86 99 08/17/19 06:10 98 F 18 08/17/19 06:07 87 99 08/17/19 06:02 96 H 99 08/17/19 05:57 80 97 08/17/19 05:52 80 98 08/17/19 05:47 81 94 08/17/19 05:42 85 97 08/17/19 05:37 96 H 95 08/17/19 05:34 93 H 86 08/17/19 05:32 85 143/78 98 08/17/19 05:28 89 84 08/17/19 05:27 92 H 98 08/17/19 05:22 90 90 06/11/20 05:21 88 83 L 08/17/19 05:17 96 H 91 08/17/19 05:16 85 78 L 08/17/19 05:12 95 H 74 L 08/17/19 05:10 91 H 75 L 08/17/19 05:07 83 100 08/17/19 05:03 82 89 08/17/19 05:02 82 92 08/17/19 04:57 80 94 08/17/19 04:52 81 96 08/17/19 04:47 82 96 08/17/19 04:42 79 95 08/17/19 04:37 78 97 08/17/19 04:32 83 140/75 96 08/17/19 04:27 79 96 08/17/19 04:22 86 98 08/17/19 04:17 95 H 98 08/17/19 04:12 89 98 08/17/19 04:07 87 98 08/17/19 04:02 83 99 08/17/19 04:00 97.8 F 08/17/19 03:57 86 99 08/17/19 03:52 82 98 08/17/19 03:47 86 96 08/17/19 03:42 85 97 08/17/19 03:37 92 H 99 08/17/19 03:32 74 98 08/17/19 03:27 77 97 08/17/19 03:22 77 96 08/17/19 03:17 75 97 08/17/19 03:12 76 97 08/17/19 03:07 75 97 08/17/19 03:02 70 97 08/17/19 02:57 82 97 08/17/19 02:52 69 83 L 08/17/19 02:47 82 98 08/17/19 02:46 91 H 78 L 08/17/19 02:42 74 95 08/17/19 02:37 81 97 08/17/19 02:33 91 H 109/55 08/17/19 02:32 77 96 08/17/19 02:27 77 96 08/17/19 02:22 78 96 08/17/19 02:17 76 96 08/17/19 02:12 77 96 08/17/19 02:07 73 95 08/17/19 02:02 73 96 08/17/19 01:57 70 95 08/17/19 01:53 77 87 08/17/19 01:52 73 99 08/17/19 01:47 76 97 08/17/19 01:42 73 95 08/17/19 01:37 75 95 08/17/19 01:33 80 125/60 08/17/19 01:32 78 96 08/17/19 01:27 80 94 08/17/19 01:22 78 95 08/17/19 01:21 82 91 08/17/19 01:17 81 95 08/17/19 01:12 77 97 08/17/19 01:11 79 94 08/17/19 01:07 91 H 81 L 08/17/19 01:04 81 93 08/17/19 01:02 80 91 08/17/19 01:00 98.3 F 18 08/17/19 00:58 81 83 L 08/17/19 00:57 86 93 08/17/19 00:52 73 84 08/17/19 00:47 81 98 08/17/19 00:45 80 91 08/17/19 00:42 79 92 08/17/19 00:39 79 88 08/17/19 00:37 81 100 08/17/19 00:34 79 88 08/17/19 00:33 81 136/64 08/17/19 00:32 86 99 08/17/19 00:29 77 90 08/17/19 00:27 77 95 08/17/19 00:23 79 90 08/17/19 00:22 78 87 08/17/19 00:18 74 91 08/17/19 00:17 77 91 08/17/19 00:13 74 93 08/17/19 00:12 75 94 08/17/19 00:07 78 87 08/17/19 00:02 77 93 08/16/19 23:57 74 93 08/16/19 23:55 81 94 08/16/19 23:52 90 97 08/16/19 23:47 86 96 08/16/19 23:42 86 97 08/16/19 23:38 73 93 08/16/19 23:37 74 97 08/16/19 23:33 80 94 08/16/19 23:32 93 H 132/63 94 08/16/19 23:27 81 94 08/16/19 23:22 80 91 08/16/19 23:21 85 93 08/16/19 23:17 88 95 08/16/19 23:16 80 94 08/16/19 23:12 85 94 08/16/19 23:07 84 94 08/16/19 23:02 83 94 08/16/19 22:57 82 94 08/16/19 22:52 79 94 08/16/19 22:49 78 94 08/16/19 22:47 77 95 08/16/19 22:43 79 94 08/16/19 22:42 86 97 08/16/19 22:37 88 98 08/16/19 22:32 86 124/59 97 08/16/19 22:30 98.2 F 08/16/19 22:27 89 98 08/16/19 22:19 70 76 L 08/16/19 22:14 76 89 08/16/19 22:08 96 H 94 08/16/19 22:05 91 H 94 08/16/19 22:03 98 H 97 08/16/19 21:58 89 94 08/16/19 21:53 86 93 08/16/19 21:52 81 93 08/16/19 21:48 79 95 08/16/19 21:47 88 94 08/16/19 21:43 80 93 08/16/19 21:42 83 92 08/16/19 21:38 93 H 97 08/16/19 21:33 91 H 97 08/16/19 21:31 91 H 134/63 08/16/19 21:28 91 H 96 08/16/19 21:23 88 147/71 96 08/16/19 21:18 85 97 08/16/19 21:15 98.9 F 18 08/16/19 21:13 87 98 08/16/19 21:08 87 140/69 98 08/16/19 21:03 91 H 99 08/16/19 20:58 87 98 08/16/19 20:53 93 H 147/75 98 08/16/19 20:48 90 97 08/16/19 20:43 94 H 98 08/16/19 20:38 93 H 154/85 96 08/16/19 20:33 86 98 08/16/19 20:28 90 99 06/10/20 20:23 83 159/88 99 06/10/20 20:18 97 H 93 08/16/19 20:13 91 H 98 08/16/19 20:08 85 153/82 96 08/16/19 20:03 88 95 08/16/19 20:02 89 94 08/16/19 19:58 82 98 08/16/19 19:53 82 151/82 97 08/16/19 19:51 73 94 08/16/19 19:48 72 95 08/16/19 19:43 69 96 08/16/19 19:42 99.2 F 18 08/16/19 19:39 71 165/92 08/16/19 19:38 72 97 08/16/19 19:33 77 98 08/16/19 19:28 74 98 08/16/19 19:23 70 95 08/16/19 19:22 68 171/94 08/16/19 19:18 69 96 08/16/19 19:16 67 176/100 08/16/19 19:13 69 97 08/16/19 19:11 68 169/98 08/16/19 19:08 76 100 08/16/19 19:06 76 160/97 08/16/19 19:03 75 98 08/16/19 19:01 76 159/89 08/16/19 18:58 75 97 08/16/19 18:56 75 156/86 08/16/19 18:53 76 99 08/16/19 18:51 78 149/86 08/16/19 18:48 80 98 08/16/19 18:47 80 147/83 08/16/19 18:43 78 97 08/16/19 18:42 80 149/85 08/16/19 18:38 81 97 08/16/19 18:36 80 156/89 08/16/19 18:33 80 97 08/16/19 18:31 89 153/91 08/16/19 18:28 77 99 08/16/19 18:27 75 153/94 08/16/19 18:23 75 98 08/16/19 18:18 73 97 08/16/19 18:13 81 96 08/16/19 18:08 81 97 08/16/19 18:03 98.9 F 79 97 08/16/19 17:58 80 99 08/16/19 17:53 84 97 08/16/19 17:48 79 97 08/16/19 17:43 77 97 08/16/19 17:42 80 143/87 08/16/19 17:38 78 100 08/16/19 17:33 79 99 08/16/19 17:27 90 20 145/89 98 08/16/19 17:26 90 145/89 Intake and Output 08/16/19 08/17/19 08/17/19 22:59 06:59 14:59 Intake Total 975 Output Total 1349 1897 400 Balance -1349 -1897 575 Intake: IV 975 Lactated Ringers 1,000 ml 975 @ 125 mls/hr IV DIRECT RUTH Rx#:[id number] Output: Urine 1349 1897 400 Indwelling Catheter 1349 1897 400 Other: Total, Output Amount 149 290 400 Weight 316 lb - Exam Breasts: Present: normal Cardiovascular: Present: Regular rate Lungs: Present: Normal air movement Abdomen: Present: normal appearance, soft Extremities: Present: normal Deep Tendon Reflex Grade: Normal +2 Incision: Present: normal, dry, intact - Labs Labs: Abnormal lab results 08/16/19 08/16/19 08/16/19 Range/Units 17:52 17:52 23:41 RDW 18.7 H (13.2-15.2) % Magnesium 4.50 H (1.7-2.3) mg/dL AST 46 H (5-40) units/L Lactate Dehydrogenase 253 H (91-180) units/L
--- NOTE | 2019-08-18 08:34 | Discharge Summary ---
Providers - Providers Date of Admission: 08/16/19 16:58 Date of discharge: 08/18/19 (Pt stable for discharge home.) Attending physician: NICOLE WAGNER Primary care physician: NICOLE WAGNER Hospitalization Reason for admission: other ( readmission) Hospital course: S: Doing well. Pain well controlled. Voiding, passing flatus, and ambulating without difficulty. BC: None. O: VSS. BP ranges 110-140's/60-80's. H/H 12.2/38.6. Incision to lower abdomen healing well. A: 34 y.o. s/p readmit for pre e, s/p mag infusion. Stable for home. P: Discharge home with instructions. Pt to schedule a blood pressure check in the office in 1 week. Condition at discharge: Good Disposition: [id number] TO HOME OR SELFCARE Plan - Discharge Medications Prescriptions: NIFEdipine XL [Procardia Xl] 30 mg PO Q12HR #60 tab - Provider Discharge Summary Activity: routine, no sex for 6 weeks, no heavy lifting 4 weeks, no strenuous exercise Diet: routine Instructions: routine Additional instructions: [] Smoking cessation referral if applicable(refer to patient education folder for contact #) [] Refer to [facility] Booklet Call your doctor immediately for: * Fever > 100.5 * Heavy vaginal bleeding ( >1 pad per hour) * Severe persistent headache * Shortness of breath * Reddened, hot, painful area to leg or breast * Drainage or odor from incision. * Keep incision clean and dry at all times and follow doctor's instructions regarding bathing/showering - Follow up plan Follow up: NICOLE WAGNER MD [Primary Care Provider] - 7 Days (Please schedule a visit in the office in 1 week to check you blood pressure. Take your blood pressure at home, if it is greater than or equal to 160/100. Take blood pressure medications as prescribed. If you have any questions or concerns, please do not hesitate to call the office at [phone].)
[2019-08-18] MEDS: NIFEdipine XL 30 MG TAB PO SCH (10:03)
[2019-08-18 19:01] VITALS: BP 126/83
== END 2019-08-18 18:16 | disposition home or self-care (01) | DRG 776 ==
LOC: UNDOADMIN 16:29 → 3A 16:29 → LD 16:58 → OB 08-17 18:06
PROVIDERS: ADMIT Obstetrics & Gynecology; ATTEND Obstetrics & Gynecology
DX: O14.95 Unspecified pre-eclampsia, complicating the puerperium (principal); Z79.899 Other long term (current) drug therapy
CPT/HCPCS: 36415; 82565; 83615; 83735; 84450; 84460; 84550; 85027; G0378; J3475; J7120